=== PATIENT | female | born 1995 | race African-American/Black ===

== ENCOUNTER 2018-12-28 08:56 | Emergency (ER) | payer OTHER ==
[~2018-12-28] VITALS: Ht 162.6 cm; Wt 59.6 kg
[2018-12-28] MEDS ORDERED: ACETAMINOPHEN 500 MG TABLET PO ONE (10:00)
[2018-12-28 10:30] LABS: BILIRUBIN,URINE NEGATIVE (NEG); CLARITY,URINE CLEAR; COLOR,URINE YELLOW; NITRITE,URINE NEGATIVE (NEG); PROTEIN,URINE NEGATIVE (NEG-TRACE); UROBILINOGEN,URINE 0.2 mg/dL (0.2 mg/dL)
[2018-12-28 10:38] LABS: BACTERIA,URINE 0 /HPF (0-FEW); RBC,URINE 0 /HPF (0-2); SQUAMOUS EPITHELIAL CELL,UR FEW /LPF; WBC,URINE 0 /HPF (0-4)
[2018-12-28 11:21] LABS: BASO % 1 % (0-3); EOS # 0.1 x10^3/uL (0.0-0.7); EOS % 2 % (0-3); HEMATOCRIT 44.2 % (36.0-47.0); HEMOGLOBIN 14.5 g/dL (12.0-15.5); LYMPH # 1.7 x10^3/uL (1.0-4.8); LYMPH % 41 % (24-48); MEAN CORPUSCULAR HEMOGLOBIN 29 pg (25-35); MEAN CORPUSCULAR HGB CONC 33 g/dL (31-37); MEAN CORPUSCULAR VOLUME 90 fL (79-100); MONO # 0.4 x10^3/uL (0.0-1.1); MONO % 9 % (0-9); NEUT # 1.9 x10^3uL (1.8-7.7); NEUT % 47 % (31-73); PLATELET COUNT 213 x10^3/uL (140-400); RED BLOOD COUNT 4.91 x10^6/uL (3.50-5.40); RED CELL DISTRIBUTION WIDTH 13.3 % (11.5-14.5); WHITE BLOOD COUNT 4.1 x10^3/uL (4.0-11.0)
[2018-12-28 11:32] LABS: CALCIUM 9.7 mg/dL (8.5-10.1); CREATININE 0.7 mg/dL (0.6-1.0); GFR 123.4; POTASSIUM 3.9 mmol/L (3.5-5.1)
[2018-12-28 11:42] LABS: ALBUMIN 4.3 g/dL (3.4-5.0); ALBUMIN/GLOBULIN RATIO 1.2 (1.0-1.7); TOTAL BILIRUBIN 0.7 mg/dL (0.2-1.0); TOTAL PROTEIN 7.9 g/dL (6.4-8.2)
--- NOTE | 2018-12-28 12:35 | RAD ---
EXAM: Obstetrics sonogram. HISTORY: Pelvic pain and positive test. TECHNIQUE: Sonographic imaging of the pelvis was performed. COMPARISON: None. FINDINGS: The uterus measures 9.8 x 5.0 x 6.0 cm. There is a fluid collection within the endometrial cavity with surrounding decidual reaction, likely due to an early gestational sac. There is a circular echogenic structure within this suspected gestational sac likely due to a yolk sac. The gestational sac is abnormal in configuration and the mean sac diameter is 1.22 cm, corresponding with a gestational age of 6 weeks and 0 days. No pole is seen. The ovaries are normal in size and demonstrate normal blood flow. There is a suspected 2.2 cm left corpus luteum cyst. There are bilateral pelvic varices. There is no pelvic free fluid. IMPRESSION: 1. Small fluid collection within the endometrial cavity, the appearance of which favors a gestational sac with yolk sac. The mean sac diameter corresponds with a gestational age of 6 weeks and 0 days. No pole seen at this early gestational age. The gestational sac is abnormal in configuration and there is a reported low beta-hCG level of 155. This may be due to a declining beta hCG in the setting of a missed miscarriage or impending miscarriage. The possibly of an intrauterine pseudosac in the setting of ectopic gestation is not favored given the presence of a yolk sac. Serial beta hCG levels and short-term sonographic follow-up is indicated. 2. Suspected 2.2 cm left corpus luteum cyst. 3. Bilateral pelvic varices. Electronically signed by: Marilee Portillo MD (12/28/2018 12:32 PM) [facility]
--- NOTE | 2018-12-28 13:39 | PHYS DOC ---
Past Medical History Past Medical History: Asthma, STD, Other Additional Past Medical Histor: miscarriage Past Surgical History: No Surgical History Additional Information: 4-5 cigarettes daily Alcohol Use: None Drug Use: None Adult General Chief Complaint Chief Complaint: ABDOMINAL PAIN IN [facility] HPI Patient is a 23 year old female that presents to the ER with abdominal pain x 3 weeks. She has associated symptoms of when she defecates she has pain and becomes light-headed. She states she went to her PCP 2 weeks ago and had a positive test. 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 Denies any vaginal bleeding and states that her last menstrual period was on 11/24-11/29 and had more blood clots than normal. She rates her pain level a severity of 10/10 and states it feels like she is being stabbed. Review of Systems Review of Systems Constitutional: Denies fever. Reports feeling hot/cold. Eyes: Denies change in visual acuity, redness, or eye pain [] HENT: Denies nasal congestion or sore throat [] Respiratory: Denies cough or shortness of breath [] Cardiovascular: No additional information not addressed in HPI [] GI: Reports abdominal pain in the lower pelvic area. Denies nausea, vomiting, bloody stools or diarrhea [] : Denies dysuria or hematuria but reports frequency Musculoskeletal: Denies back pain or joint pain [] Integument: Denies rash or skin lesions [] Neurologic: Denies headache, focal weakness or sensory changes [] Endocrine: Reports frequency or polydipsia [] Complete systems were reviewed and found to be within normal limits, except as documented in this note. Current Medications Current Medications Current Medications Medications (Trade) Dose Ordered Sig/[facility] Start Time Stop Time Status Last Admin Dose Admin Acetaminophen (Tylenol) 500 mg 1X ONCE 12/28/18 10:00 12/28/18 10:10 DC 12/28/18 11:07 500 MG Allergies Allergies Allergies Coded Allergies Type Severity Reaction Last Updated Verified No Known Drug Allergies 12/28/18 No Physical Exam Physical Exam Constitutional: No acute distress, non-toxic appearance. [] HENT: Normocephalic, atraumatic, oropharynx moist, no oral exudates, nose normal. [] Eyes: PERRLA, EOMI, conjunctiva normal, no discharge. [] Neck: Normal range of motion, no tenderness, supple, no stridor. [] Cardiovascular:Heart rate regular rhythm, no murmur [] Lungs & Thorax: Bilateral breath sounds clear to auscultation [] Abdomen: Bowel sounds normal, soft, tenderness to lower pelvic area bilaterally, no masses, no pulsatile masses. [] Skin: Warm, dry, no erythema, no rash. [] Back: No tenderness, no CVA tenderness. [] Extremities: No tenderness, no cyanosis, no clubbing, ROM intact, no edema. [] Neurologic: Alert and oriented X 3, normal motor function, normal sensory function, no focal deficits noted. [] Psychologic: Affect normal, judgement normal, mood normal. [] Current Patient Data Vital Signs Vital Signs Date Time Temp Pulse Resp B/P (MAP) Pulse Ox O2 Delivery O2 Flow Rate FiO2 12/28/18 14:00 79 19 119/82 (94) 100 Room Air 12/28/18 09:10 99.2 99.2 Lab Values Laboratory Tests Test 12/28/18 09:11 12/28/18 09:14 12/28/18 10:50 12/28/18 12:16 Urine Collection Type Unknown Urine Color Yellow Urine Clarity Clear Urine pH 7.0 Urine Specific [place] 1.020 Urine Protein Negative mg/dL (NEG-TRACE) Urine Glucose (UA) Negative mg/dL (NEG) Urine Ketones (Stick) Negative mg/dL (NEG) Urine Blood Negative (NEG) Urine Nitrite Negative (NEG) Urine Bilirubin Negative (NEG) Urine Urobilinogen Dipstick 0.2 mg/dL (0.2 mg/dL) Urine Leukocyte Esterase Negative (NEG) Urine RBC 0 /HPF (0-2) Urine WBC 0 /HPF (0-4) Urine Squamous Epithelial Cells Few /LPF Urine Bacteria 0 /HPF (0-FEW) POC Urine HCG, Qualitative Hcg positive (Negative) White Blood Count 4.1 x10^3/uL (4.0-11.0) Red Blood Count 4.91 x10^6/uL (3.50-5.40) Hemoglobin 14.5 g/dL (12.0-15.5) Hematocrit 44.2 % (36.0-47.0) Mean Corpuscular Volume 90 fL (79-100) Mean Corpuscular Hemoglobin 29 pg (25-35) Mean Corpuscular Hemoglobin Concent 33 g/dL (31-37) Red Cell Distribution Width 13.3 % (11.5-14.5) Platelet Count 213 x10^3/uL (140-400) Neutrophils (%) (Auto) 47 % (31-73) Lymphocytes (%) (Auto) 41 % (24-48) Monocytes (%) (Auto) 9 % (0-9) Eosinophils (%) (Auto) 2 % (0-3) Basophils (%) (Auto) 1 % (0-3) Neutrophils # (Auto) 1.9 x10^3uL (1.8-7.7) Lymphocytes # (Auto) 1.7 x10^3/uL (1.0-4.8) Monocytes # (Auto) 0.4 x10^3/uL (0.0-1.1) Eosinophils # (Auto) 0.1 x10^3/uL (0.0-0.7) Basophils # (Auto) 0.0 x10^3/uL (0.0-0.2) Maternal Serum HCG Beta Subunit 155 mIU/mL (0-5) H Sodium Level 139 mmol/L (136-145) Potassium Level 3.9 mmol/L (3.5-5.1) Chloride Level 103 mmol/L (98-107) Carbon Dioxide Level 26 mmol/L (21-32) Anion Gap 10 (6-14) Blood Urea Nitrogen 8 mg/dL (7-20) Creatinine 0.7 mg/dL (0.6-1.0) Estimated GFR (Cockcroft-Gault) 123.4 BUN/Creatinine Ratio 11 (6-20) Glucose Level 88 mg/dL (70-99) Calcium Level 9.7 mg/dL (8.5-10.1) Total Bilirubin 0.7 mg/dL (0.2-1.0) Aspartate Amino Transferase (AST) 16 U/L (15-37) Alanine Aminotransferase (ALT) 19 U/L (14-59) Alkaline Phosphatase 43 U/L (46-116) L Total Protein 7.9 g/dL (6.4-8.2) Albumin 4.3 g/dL (3.4-5.0) Albumin/Globulin Ratio 1.2 (1.0-1.7) Chlamydia DNA Probe Negative (Negative) Neisseria gonorrhoeae DNA Probe Negative (Negative) Laboratory Tests 12/28/18 10:50 Laboratory Tests 12/28/18 10:50 EKG EKG [] Radiology/Procedures Radiology/Procedures Pelvic Exam: External exam is normal and without rash, No CMT, OS is closed, No discharge, uterus NTTP, No adnexal masses or tenderness noted[ PATIENT: JYOTI NUR ACCOUNT: [id number] : 1995 LOCATION: ER AGE: 23 SEX: F EXAM STATUS: REG ER ORD. PHYSICIAN: ADALBERTO SWAN APRN REASON: PELVIC PAIN r/o ectopic /waiting on hcg from lab PROCEDURE: OB <14 WKS W/TV EXAM: Obstetrics sonogram. HISTORY: Pelvic pain and positive test. TECHNIQUE: Sonographic imaging of the pelvis was performed. COMPARISON: None. FINDINGS: The uterus measures 9.8 x 5.0 x 6.0 cm. There is a fluid collection within the endometrial cavity with surrounding decidual reaction, likely due to an early gestational sac. There is a circular echogenic structure within this suspected gestational sac likely due to a yolk sac. The gestational sac is abnormal in configuration and the mean sac diameter is 1.22 cm, corresponding with a gestational age of 6 weeks and 0 days. No pole is seen. The ovaries are normal in size and demonstrate normal blood flow. There is a suspected 2.2 cm left corpus luteum cyst. There are bilateral pelvic varices. There is no pelvic free fluid. IMPRESSION: 1. Small fluid collection within the endometrial cavity, the appearance of which favors a gestational sac with yolk sac. The mean sac diameter corresponds with a gestational age of 6 weeks and 0 days. No pole seen at this early gestational age. The gestational sac is abnormal in configuration and there is a reported low beta-hCG level of 155. This may be due to a declining beta hCG in the setting of a missed miscarriage or impending miscarriage. The possibly of an intrauterine pseudosac in the setting of ectopic gestation is not favored given the presence of a yolk sac. Serial beta hCG levels and short-term sonographic follow-up is indicated. 2. Suspected 2.2 cm left corpus luteum cyst. 3. Bilateral pelvic varices. Electronically signed by: Marilee Portillo MD (12/28/2018 12:32 PM) [facility] & Med Decision Making Course & Med Decision Making Pertinent Labs and Imaging studies reviewed. (See chart for details) Talked to patient about her symptoms. Informed her that I will perform a pelvic, test for STD's, urinalysis, hcg quant, blood type, and r/o ectopic with ultrasound. Patient is agreeable to plan of care. Discussed with patient her results. Discussed how her HCG does not correspond to the ultrasound. Has 2.[address] Abel (OB) and discussed case and she will see patient in her clinic for follow up testing. Patient is agreeable to plan. Will also give Rhogam as she is O-. Dragon Disclaimer Dragon Disclaimer This electronic medical record was generated, in whole or in part, using a voice recognition dictation system. Departure Departure Impression: Primary Impression: Threatened miscarriage in early Disposition: 01 HOME, SELF-CARE Condition: STABLE Referrals: FLOR MATA MD (PCP) KORIN CAMARA MD Patient Instructions: Threatened Miscarriage, [id number] Additional Instructions: Please follow up with OB for additional testing in 1 week. If symptoms worsen come back to ER. Scripts No Active Prescriptions or Reported Meds ADALBERTO SWAN APRN December 28, 2018 13:39
[2018-12-28 14:00] VITALS: BP 119/82
[2018-12-29 13:15] LABS: GC PROBE Negative (Negative)
== END 2018-12-28 14:25 | disposition home or self-care (01) ==
LOC: ER 08:56
DX: O20.0 Threatened abortion (principal); R42 Dizziness and giddiness; O34.81 Maternal care for other abnormalities of pelvic organs, first trimester; N83.12 Corpus luteum cyst of left ovary; O99.331 Smoking (tobacco) complicating pregnancy, first trimester; F17.210 Nicotine dependence, cigarettes, uncomplicated; O99.511 Diseases of the respiratory system complicating pregnancy, first trimester; J45.909 Unspecified asthma, uncomplicated; Z3A.01 Less than 8 weeks gestation of pregnancy
CPT/HCPCS: 36415; 76801; 76817; 80053; 81001; 81025; 84702; 85025; 86850; 86900; 86901; 87491; 87591; 99285; J2791

== ENCOUNTER 2019-01-03 09:07 | Emergency (ER) | payer OTHER ==
[~2019-01-03] VITALS: Ht 162.6 cm; Wt 58.5 kg
--- NOTE | 2019-01-03 09:38 | PHYS DOC ---
Past Medical History Past Medical History: Asthma, STD, Other Additional Past Medical Histor: miscarriage Past Surgical History: No Surgical History Alcohol Use: None Drug Use: None Adult General Chief Complaint Chief Complaint: VAGINAL BLEEDING HPI HPI 23-year-old female returns to the ER as she was seen on 12/28/18 for abdominal pain with . Patient reports 5 AM this morning she started having vaginal bleeding and passed tissue. Patient states she has continued to have abdominal pain denies increasing cramping. Patient states she has used one pad since onset of bleeding this morning. Patient denies dizziness, vomiting, urinary sxs, or fever. LMP 11/24-11/29 [id number]. Received Rhogham on 12/28/18 while in the ER. Review of Systems Review of Systems Constitutional: Denies fever or fatigue Respiratory: Denies cough or shortness of breath [] Cardiovascular: No additional information not addressed in HPI [] GI: Denies vomiting, bloody stools or diarrhea. Reports mid abd pain with intermittent nausea during - similar to current pain : Denies dysuria or hematuria [] Musculoskeletal: Denies back pain or joint pain [] Integument: Denies rash or skin lesions [] Neurologic: Denies headache, focal weakness or sensory changes. Denies dizziness All other systems were reviewed and found to be within normal limits, except as documented in this note. Allergies Allergies Allergies Coded Allergies Type Severity Reaction Last Updated Verified No Known Drug Allergies 12/28/18 No Physical Exam Physical Exam Constitutional: Well developed, well nourished, no acute distress, non-toxic appearance. [] HENT: Normocephalic, atraumatic, oropharynx moist, nose normal. [] Eyes: Pupils equal, conjunctiva normal, no discharge. [] Neck: Normal range of motion, no tenderness, supple, no stridor. [] Cardiovascular: Heart rate regular rhythm, no murmur [] Lungs & Thorax: Bilateral breath sounds clear to auscultation- resp. equal/nonlabored Abdomen: Bowel sounds normal, soft-no distention or rigidity, no tenderness on palp. of abd, no masses, no pulsatile masses. [] Skin: Warm, dry, no erythema, no rash. [] Back: No tenderness, no CVA tenderness. [] Extremities: No tenderness, no cyanosis, no clubbing, ROM intact, no edema. [] Neurologic: Alert and oriented X 3, normal motor function, normal sensory function, no focal deficits noted. [] Psychologic: Affect normal, judgement normal, mood normal. [] Pelvic Exam: RN Mitch present 954 External Genitalia: Normal Skin- no rash/lesions/erythema Speculum: Normal vaginal mucosa, cervical os closed. Darker blood in vaginal vault- no clots/tissue Wet prep obtained as that had not been obtained on 12/28 ER visit Current Patient Data Vital Signs Vital Signs Date Time Temp Pulse Resp B/P (MAP) Pulse Ox O2 Delivery O2 Flow Rate FiO2 01/03/19 11:04 77 146/89 (108) 99 Room Air 01/03/19 09:23 98.6 18 98.6 Lab Values Laboratory Tests Test 01/03/19 09:15 01/03/19 09:40 Urine Color [place] Urine Clarity Clear Urine pH 5.5 Urine Specific [place] 1.025 Urine Protein Negative mg/dL (NEG-TRACE) Urine Glucose (UA) Negative mg/dL (NEG) Urine Ketones (Stick) Trace mg/dL (NEG) Urine Blood Large (NEG) Urine Nitrite Negative (NEG) Urine Bilirubin Negative (NEG) Urine Urobilinogen Dipstick 0.2 mg/dL (0.2 mg/dL) Urine Leukocyte Esterase Small (NEG) Urine RBC Tntc /HPF (0-2) Urine WBC 5-10 /HPF (0-4) Urine Bacteria Few /HPF (0-FEW) Urine Mucus Mod /LPF White Blood Count 4.8 x10^3/uL (4.0-11.0) Red Blood Count 4.61 x10^6/uL (3.50-5.40) Hemoglobin 13.6 g/dL (12.0-15.5) Hematocrit 41.3 % (36.0-47.0) Mean Corpuscular Volume 90 fL (79-100) Mean Corpuscular Hemoglobin 30 pg (25-35) Mean Corpuscular Hemoglobin Concent 33 g/dL (31-37) Red Cell Distribution Width 13.1 % (11.5-14.5) Platelet Count 220 x10^3/uL (140-400) Neutrophils (%) (Auto) 46 % (31-73) Lymphocytes (%) (Auto) 44 % (24-48) Monocytes (%) (Auto) 8 % (0-9) Eosinophils (%) (Auto) 2 % (0-3) Basophils (%) (Auto) 0 % (0-3) Neutrophils # (Auto) 2.2 x10^3uL (1.8-7.7) Lymphocytes # (Auto) 2.1 x10^3/uL (1.0-4.8) Monocytes # (Auto) 0.4 x10^3/uL (0.0-1.1) Eosinophils # (Auto) 0.1 x10^3/uL (0.0-0.7) Basophils # (Auto) 0.0 x10^3/uL (0.0-0.2) Maternal Serum HCG Beta Subunit 62 mIU/mL (0-5) H Sodium Level 137 mmol/L (136-145) Potassium Level 3.6 mmol/L (3.5-5.1) Chloride Level 103 mmol/L (98-107) Carbon Dioxide Level 22 mmol/L (21-32) Anion Gap 12 (6-14) Blood Urea Nitrogen 8 mg/dL (7-20) Creatinine 0.8 mg/dL (0.6-1.0) Estimated GFR (Cockcroft-Gault) 105.8 Glucose Level 104 mg/dL (70-99) H Calcium Level 8.9 mg/dL (8.5-10.1) Laboratory Tests 01/03/19 09:40 Laboratory Tests 01/03/19 09:40 Microbiology 01/03/19 Wet Prep - Final, Complete Laboratory Tests Test 01/03/19 09:15 01/03/19 09:40 Urine Color [place] Urine Clarity Clear Urine pH 5.5 Urine Specific [place] 1.025 Urine Protein Negative mg/dL (NEG-TRACE) Urine Glucose (UA) Negative mg/dL (NEG) Urine Ketones (Stick) Trace mg/dL (NEG) Urine Blood Large (NEG) Urine Nitrite Negative (NEG) Urine Bilirubin Negative (NEG) Urine Urobilinogen Dipstick 0.2 mg/dL (0.2 mg/dL) Urine Leukocyte Esterase Small (NEG) Urine RBC Tntc /HPF (0-2) Urine WBC 5-10 /HPF (0-4) Urine Bacteria Few /HPF (0-FEW) Urine Mucus Mod /LPF White Blood Count 4.8 x10^3/uL (4.0-11.0) Red Blood Count 4.61 x10^6/uL (3.50-5.40) Hemoglobin 13.6 g/dL (12.0-15.5) Hematocrit 41.3 % (36.0-47.0) Mean Corpuscular Volume 90 fL (79-100) Mean Corpuscular Hemoglobin 30 pg (25-35) Mean Corpuscular Hemoglobin Concent 33 g/dL (31-37) Red Cell Distribution Width 13.1 % (11.5-14.5) Platelet Count 220 x10^3/uL (140-400) Neutrophils (%) (Auto) 46 % (31-73) Lymphocytes (%) (Auto) 44 % (24-48) Monocytes (%) (Auto) 8 % (0-9) Eosinophils (%) (Auto) 2 % (0-3) Basophils (%) (Auto) 0 % (0-3) Neutrophils # (Auto) 2.2 x10^3uL (1.8-7.7) Lymphocytes # (Auto) 2.1 x10^3/uL (1.0-4.8) Monocytes # (Auto) 0.4 x10^3/uL (0.0-1.1) Eosinophils # (Auto) 0.1 x10^3/uL (0.0-0.7) Basophils # (Auto) 0.0 x10^3/uL (0.0-0.2) Maternal Serum HCG Beta Subunit 62 mIU/mL (0-5) H Sodium Level 137 mmol/L (136-145) Potassium Level 3.6 mmol/L (3.5-5.1) Chloride Level 103 mmol/L (98-107) Carbon Dioxide Level 22 mmol/L (21-32) Anion Gap 12 (6-14) Blood Urea Nitrogen 8 mg/dL (7-20) Creatinine 0.8 mg/dL (0.6-1.0) Estimated GFR (Cockcroft-Gault) 105.8 Glucose Level 104 mg/dL (70-99) H Calcium Level 8.9 mg/dL (8.5-10.1) Laboratory Tests 01/03/19 09:40 Laboratory Tests 01/03/19 09:40 Microbiology 01/03/19 Wet Prep - Final, Complete EKG EKG [] Radiology/Procedures Radiology/Procedures [] Course & Med Decision Making Course & Med Decision Making Pertinent Labs reviewed. (See chart for details) 1040: Pt was evaluated in the ER for complaints of onset of vaginal bleeding this morning at 5 AM. Patient was seen in the ER on 12/28/18 and had a hCG quantitative of 155. Pt's HCQ quant today is 62- pt reports she passed tissue like vaginal discharge at home had concerns that she had miscarried. Patient's H&H was stable at 13.6/41.3. Pelvic exam was done and cervical os was closed. No tissue or clots in vaginal vault. Wet mount was obtained which was negative for trichomonas or yeast. Patient was scheduled to see Dr. Abel this morning julieth le with onset of bleeding she came to the ER. During exam pt denied any abd tenderness on palp. With stable labs, stable VS, and no active bright red bleeding/clots visible on pelvic discussed plans for home d/c. Advised patient she would need follow-up in 48 hours for repeat hCG quantitative as well as reevaluation and further care by STAFFING SPECIALIST. With levels dropping on her hCG quantitative discussed probable miscarriage. Patient had received Rhogham on 12/28/18. Patient's UA today with large blood small leuks and 5-10 WBCs on micro- so will provide prescription for Keflex. Education provided on signs and symptoms to return to ER for. Patient remains nontoxic in appearance and in no visible distress during discharge discussion. Discharge instructions were discussed. Dragon Disclaimer Dragon Disclaimer This electronic medical record was generated, in whole or in part, using a voice recognition dictation system. Departure Departure Impression: Primary Impression: Threatened miscarriage in early Additional Impression: Urinary tract infection Disposition: 01 HOME, SELF-CARE Condition: STABLE Referrals: FLOR MATA MD (PCP) Patient Instructions: Threatened Miscarriage, Urinary Tract Infection, Vaginal Bleeding During , First Trimester Additional Instructions: Drink plenty of fluids. Vaginal rest until follow-up with your STAFFING SPECIALIST- no sexual intercourse or insertion of anything into the vagina. Tylenol as needed for pain as directed on container. Follow-up with your STAFFING SPECIALIST for recheck of your level- today's lab result was 62 which is down from 155 on 12/28/18. Scripts Cephalexin (KEFLEX) 500 Mg Capsule 1 CAP PO BID, #14 CAP 0 Refills Prov: CHRISSY SALAZAR APRN 01/03/19 Problem Qualifiers CHRISSY SALAZAR APRN January 03, 2019 09:38
[2019-01-03 09:55] LABS: BASO % 0 % (0-3); EOS # 0.1 x10^3/uL (0.0-0.7); EOS % 2 % (0-3); HEMATOCRIT 41.3 % (36.0-47.0); HEMOGLOBIN 13.6 g/dL (12.0-15.5); LYMPH # 2.1 x10^3/uL (1.0-4.8); LYMPH % 44 % (24-48); MEAN CORPUSCULAR HEMOGLOBIN 30 pg (25-35); MEAN CORPUSCULAR HGB CONC 33 g/dL (31-37); MEAN CORPUSCULAR VOLUME 90 fL (79-100); MONO # 0.4 x10^3/uL (0.0-1.1); MONO % 8 % (0-9); NEUT # 2.2 x10^3uL (1.8-7.7); NEUT % 46 % (31-73); PLATELET COUNT 220 x10^3/uL (140-400); RED BLOOD COUNT 4.61 x10^6/uL (3.50-5.40); RED CELL DISTRIBUTION WIDTH 13.1 % (11.5-14.5); WHITE BLOOD COUNT 4.8 x10^3/uL (4.0-11.0)
[2019-01-03 09:57] LABS: BILIRUBIN,URINE NEGATIVE (NEG); CLARITY,URINE CLEAR; COLOR,URINE AMBER; NITRITE,URINE NEGATIVE (NEG); PH,URINE 5.5; PROTEIN,URINE NEGATIVE (NEG-TRACE); UROBILINOGEN,URINE 0.2 mg/dL (0.2 mg/dL)
[2019-01-03 10:07] LABS: CALCIUM 8.9 mg/dL (8.5-10.1); CREATININE 0.8 mg/dL (0.6-1.0); GFR 105.8; POTASSIUM 3.6 mmol/L (3.5-5.1)
[2019-01-03 10:09] LABS: BACTERIA,URINE FEW /HPF (0-FEW); RBC,URINE TNTC /HPF (0-2)
[2019-01-03] MEDS ORDERED: CEPH-264 PO (11:01)
[2019-01-03 11:04] VITALS: BP 146/89
== END 2019-01-03 11:05 | disposition home or self-care (01) ==
LOC: ER 09:07
DX: O20.0 Threatened abortion (principal); O23.41 Unspecified infection of urinary tract in pregnancy, first trimester; O99.511 Diseases of the respiratory system complicating pregnancy, first trimester; J45.909 Unspecified asthma, uncomplicated; Z3A.00 Weeks of gestation of pregnancy not specified
CPT/HCPCS: 36415; 80048; 81001; 84702; 85025; 87086; 99284; Q0111

== ENCOUNTER 2019-04-08 10:44 | Emergency (ER) | payer MEDICAID, OTHER ==
[~2019-04-08] VITALS: Ht 162.6 cm; Wt 58.5 kg
[~2019-04-08 10:44] MED LIST: CEPH-264 PO
[2019-04-08 10:50] VITALS: BP 158/78
[2019-04-08] MEDS ORDERED: predniSONE 10 MG TABLET PO ONE (11:15)
[2019-04-08] MEDS ORDERED: IPRATRPIUM/ALBUTEROL 0.5/2.5MG 3 ML NEBU. NEB ONE (11:15)
[2019-04-08] MEDS ORDERED: BENZ100C PO (11:33)
[2019-04-08] MEDS ORDERED: AZIT250T PO (11:33)
[2019-04-08] MEDS ORDERED: METH4TAB2 PO (11:33)
--- NOTE | 2019-04-08 11:34 | PHYS DOC ---
Past Medical History Past Medical History: Asthma, STD, Other Additional Past Medical Histor: miscarriage Past Surgical History: No Surgical History Smoking: Less than 1pk/day Alcohol Use: None Drug Use: None Adult General Chief Complaint Chief Complaint: ASTHMA HPI HPI Patient is a 23 year old female with history of asthma who presents with complaining of shortness of breath and cough. Patient complaining of cough with tick white sputum and episodes of shortness of breath for one week associated with nasal congestion and headache that did not get better with home inhalers. Patient denies fever and chills, urinary symptom, , sick contact. Patient complaining of chest tightness during episodes of cough and shortness of breath. Patient states she had diarrhea for couple days that resolved spontaneously. Review of Systems Review of Systems Constitutional: Denies fever or chills [] Eyes: Denies change in visual acuity, redness, or eye pain [] HENT: Reports nasal congestion, denies earache and sore throat [] Respiratory: Reports shortness of breath and cough Cardiovascular: No additional information not addressed in HPI [] GI: Denies abdominal pain, nausea, vomiting, bloody stools or diarrhea [] : Denies dysuria or hematuria [] Musculoskeletal: Denies back pain or joint pain [] Integument: Denies rash or skin lesions [] Neurologic: Denies headache, focal weakness or sensory changes [] Endocrine: Denies polyuria or polydipsia [] All other systems were reviewed and found to be within normal limits, except as documented in this note. Current Medications Current Medications Current Medications Medications (Trade) Dose Ordered Sig/Jimbo Start Time Stop Time Status Last Admin Dose Admin Albuterol/ Ipratropium (Duoneb) 3 ml 1X ONCE 04/08/19 11:15 04/08/19 11:19 DC 04/08/19 11:31 3 ML Prednisone (Prednisone) 50 mg 1X ONCE 04/08/19 11:15 04/08/19 11:20 DC 04/08/19 11:24 50 MG Allergies Allergies Allergies Coded Allergies Type Severity Reaction Last Updated Verified No Known Drug Allergies 12/28/18 No Physical Exam Physical Exam Constitutional: Well developed, well nourished,mild distress, non-toxic appearance. [] HENT: Normocephalic, atraumatic, bilateral external ears normal, oropharynx moist, no oral exudates, nose normal. [] Eyes: PERRLA, EOMI, conjunctiva normal, no discharge. [] Neck: Normal range of motion, no tenderness, supple, no stridor. [] Cardiovascular:Heart rate regular rhythm, no murmur [] Lungs & Thorax: No respiratory distress, mild wheezing. Abdomen: Bowel sounds normal, soft, no tenderness, no masses, no pulsatile masses. [] Skin: Warm, dry, no erythema, no rash. [] Back: No tenderness, no CVA tenderness. [] Extremities: No tenderness, no cyanosis, no clubbing, ROM intact, no edema. [] Neurologic: Alert and oriented X 3, normal motor function, normal sensory function, no focal deficits noted. [] Psychologic: Affect normal, judgement normal, mood normal. [] Current Patient Data Vital Signs Vital Signs Date Time Temp Pulse Resp B/P (MAP) Pulse Ox O2 Delivery O2 Flow Rate FiO2 04/08/19 11:34 99 Room Air 04/08/19 10:50 98.9 85 15 158/78 (104) 98.9 EKG EKG [] Radiology/Procedures Radiology/Procedures [] Course & Med Decision Making Course & Med Decision Making Evaluation of patient in ER showed 23-year-old female patient with history of asthma who presented to ER with complaining of shortness of breath and asthma for 1 week that did not get better with Proair. Patient had mild wheezing without fever or hypoxia. Patient was advised to quit smoking and continue her home inhaler. I've spoken with the patient and/or caregivers. I've explained the patient's condition, diagnosis and treatment plan based on information available to me at this time. I've answered the patient's and/or caregivers questions and addressed any concerns. The patient and/or caregivers have a good understanding the patient's diagnosis, condition and treatment plan as can be expected at this point. Vital signs have been stabilized. The patient's condition is stable for discharge from the emergency department. The patient will pursue further outpatient evaluation with her primary care provider or other designated consulting physician as outlined in the discharge instructions. Patient and/or caregivers are agreeable to this plan of care and follow-up instructions have been explained in detail. The patient and/or caregivers have received these instructions in written format and expressed understanding of these discharge instructions. The patient and her caregivers are aware that if any significant change in condition or worsening of symptoms should prompt him to immediately return to this of the closest emergency department. If an emergent department is not readily available I would encourage him to call 911. Yecenia Disclaimer Yecenia Disclaimer This electronic medical record was generated, in whole or in part, using a voice recognition dictation system. Departure Departure Impression: Primary Impression: Asthmatic bronchitis with acute exacerbation Additional Impression: Tobacco abuse counseling Disposition: HOME, SELF-CARE (at 11:30) Condition: STABLE Referrals: UNKNOWN PCP NAME (PCP) Patient Instructions: Asthma Attacks, Prevention, Asthma, Acute Bronchospasm, Smoking Cessation, Tips For Success Additional Instructions: Drink plenty of liquids Follow-up with your primary care physician in 3-5 days Return to ER if not getting better Scripts Azithromycin (ZITHROMAX) 250 Mg Tablet 1 PKG PO UD for infection, #1 PKG Prov: ADARSH MALCOLM MD 04/08/19 Benzonatate (TESSALON PERLE) 100 Mg Capsule 1 CAP PO TID for cough, #21 CAP Prov: ADARSH MALCOLM MD 04/08/19 Methylprednisolone (MEDROL) 4 Mg Tab.ds.pk 1 PKG PO UD for inflammation, #1 PKG Prov: ADARSH MALCOLM MD 04/08/19 Problem Qualifiers Primary Impression: Asthmatic bronchitis with acute exacerbation Asthma severity: mild Asthma persistence: intermittent Qualified Codes: J45.21 - Mild intermittent asthma with (acute) exacerbation ADARSH MALCOLM MD Apr 08, 2019 11:34
== END 2019-04-08 11:38 | disposition home or self-care (01) ==
LOC: ER 10:44
DX: J45.21 Mild intermittent asthma with (acute) exacerbation (principal); Z71.6 Tobacco abuse counseling
CPT/HCPCS: 94640; 99283; J7512; J7620

== ENCOUNTER 2019-09-04 14:02 | Emergency (ER) | payer MEDICAID ==
[~2019-09-04] VITALS: Ht 162.6 cm; Wt 59.9 kg
[~2019-09-04 14:02] MED LIST changes: +AZIT250T PO; +BENZ100C PO; +METH4TAB2 PO
--- NOTE | 2019-09-04 16:16 | PHYS DOC ---
Past Medical History Past Medical History: Asthma, STD, Other Additional Past Medical Histor: miscarriage Past Surgical History: No Surgical History Alcohol Use: None Drug Use: None Adult General Chief Complaint Chief Complaint: ABDOMINAL PAIN IN HPI HPI Patient is a 24 year old female who presents the ED today complaining of pelvic pain rated as mild to moderate intermittently for one week. Patient describes the pain as labor pains. Denies any vaginal discharge, bleeding, or concerns for STDs. Denies any chance she is . Review of Systems Review of Systems Constitutional: Denies fever or chills [] Eyes: Denies change in visual acuity, redness, or eye pain [] HENT: Denies nasal congestion or sore throat [] Respiratory: Denies cough or shortness of breath [] Cardiovascular: No additional information not addressed in HPI [] GI: Reports pelvic pain, nausea, vomiting, bloody stools or diarrhea [] : Denies dysuria or hematuria [] Musculoskeletal: Denies back pain or joint pain [] Integument: Denies rash or skin lesions [] Neurologic: Denies headache, focal weakness or sensory changes [] All other systems were reviewed and found to be within normal limits, except as documented in this note. Allergies Allergies Allergies Coded Allergies Type Severity Reaction Last Updated Verified No Known Drug Allergies 12/28/18 No Physical Exam Physical Exam Constitutional: Well developed, well nourished, no acute distress, non-toxic appearance. [] HENT: Normocephalic, atraumatic, bilateral external ears normal, oropharynx moist, no oral exudates, nose normal. [] Eyes: PERRLA, EOMI, conjunctiva normal, no discharge. [] Neck: Normal range of motion, no tenderness, supple, no stridor. [] Cardiovascular:Heart rate regular rhythm, no murmur [] Lungs & Thorax: Bilateral breath sounds clear to auscultation [] Abdomen: Bowel sounds normal, soft, no tenderness, no masses, no pulsatile masses. [] Pelvic exam External pelvic appears normal, cervix is visualized, closed, no CMT, no adnexal tenderness, trace amount of white discharge in the vaginal vault Skin: Warm, dry, no erythema, no rash. [] Back: No tenderness, no CVA tenderness. [] Extremities: No tenderness, no cyanosis, no clubbing, ROM intact, no edema. [] Neurologic: Alert and oriented X 3, normal motor function, normal sensory function, no focal deficits noted. [] Psychologic: Affect normal, judgement normal, mood normal. [] Current Patient Data Vital Signs Vital Signs Date Time Temp Pulse Resp B/P (MAP) Pulse Ox O2 Delivery O2 Flow Rate FiO2 09/04/19 15:44 98.6 72 16 140/66 (90) 100 Room Air 98.6 Lab Values Laboratory Tests Test 09/04/19 15:54 09/04/19 15:55 09/04/19 16:25 POC Urine HCG, Qualitative Hcg positive (Negative) Urine Collection Type Unknown Urine Color Yellow Urine Clarity Turbid Urine pH 6.0 Urine Specific [place] 1.025 Urine Protein Negative mg/dL (NEG-TRACE) Urine Glucose (UA) Negative mg/dL (NEG) Urine Ketones (Stick) Negative mg/dL (NEG) Urine Blood Negative (NEG) Urine Nitrite Negative (NEG) Urine Bilirubin Negative (NEG) Urine Urobilinogen Dipstick 1.0 mg/dL (0.2 mg/dL) Urine Leukocyte Esterase Negative (NEG) Urine RBC 1-2 /HPF (0-2) Urine WBC 1-4 /HPF (0-4) Urine Squamous Epithelial Cells Mod /LPF Urine Bacteria Mod /HPF (0-FEW) Urine Mucus Marked /LPF White Blood Count 6.3 x10^3/uL (4.0-11.0) Red Blood Count 4.55 x10^6/uL (3.50-5.40) Hemoglobin 13.7 g/dL (12.0-15.5) Hematocrit 41.2 % (36.0-47.0) Mean Corpuscular Volume 91 fL (79-100) Mean Corpuscular Hemoglobin 30 pg (25-35) Mean Corpuscular Hemoglobin Concent 33 g/dL (31-37) Red Cell Distribution Width 13.4 % (11.5-14.5) Platelet Count 248 x10^3/uL (140-400) Neutrophils (%) (Auto) 47 % (31-73) Lymphocytes (%) (Auto) 42 % (24-48) Monocytes (%) (Auto) 7 % (0-9) Eosinophils (%) (Auto) 3 % (0-3) Basophils (%) (Auto) 2 % (0-3) Neutrophils # (Auto) 3.0 x10^3/uL (1.8-7.7) Lymphocytes # (Auto) 2.6 x10^3/uL (1.0-4.8) Monocytes # (Auto) 0.4 x10^3/uL (0.0-1.1) Eosinophils # (Auto) 0.2 x10^3/uL (0.0-0.7) Basophils # (Auto) 0.1 x10^3/uL (0.0-0.2) Maternal Serum HCG Beta Subunit 2653 mIU/mL (0-5) H Sodium Level 138 mmol/L (136-145) Potassium Level 4.0 mmol/L (3.5-5.1) Chloride Level 104 mmol/L (98-107) Carbon Dioxide Level 25 mmol/L (21-32) Anion Gap 9 (6-14) Blood Urea Nitrogen 10 mg/dL (7-20) Creatinine 0.7 mg/dL (0.6-1.0) Estimated GFR (Cockcroft-Gault) 122.4 BUN/Creatinine Ratio 14 (6-20) Glucose Level 92 mg/dL (70-99) Calcium Level 8.9 mg/dL (8.5-10.1) Total Bilirubin 0.5 mg/dL (0.2-1.0) Aspartate Amino Transferase (AST) 23 U/L (15-37) Alanine Aminotransferase (ALT) 43 U/L (14-59) Alkaline Phosphatase 44 U/L (46-116) L Total Protein 6.8 g/dL (6.4-8.2) Albumin 3.8 g/dL (3.4-5.0) Albumin/Globulin Ratio 1.3 (1.0-1.7) Laboratory Tests 09/04/19 16:25 Laboratory Tests 09/04/19 16:25 Microbiology 09/04/19 Wet Prep - Final, Complete EKG EKG [] Radiology/Procedures Radiology/Procedures []PROCEDURE: OB <14 WKS W/TV EXAM: Obstetrics sonogram. HISTORY: Pain. TECHNIQUE: Sonographic imaging of a gravid uterus was performed. COMPARISON: None. FINDINGS: The uterus measures 8.9 x 5.4 x 6.3 cm. The endometrial stripe measures 1.4 cm in thickness. There is a small fluid collection within the endometrial cavity likely representing an early gestational sac with mean sac diameter of 3.3 mm, corresponding with a gestational age of 5 weeks and 0 days. No pole or yolk sac is seen. The ovaries are normal in size and demonstrate normal blood flow. There is no pelvic free fluid. IMPRESSION: 1. Suspected early gestational sac within the endometrial cavity with a mean sac diameter corresponding with a gestational age of 5 weeks and 0 days. No pole is seen at this early gestation. Short-term sonographic follow-up and correlation with serial beta-hCG levels is recommended to assess viability and exclude a pseudosac. 2. Otherwise, unremarkable pelvic sonogram. Electronically signed by: Marilee Portillo MD (09/04/2019 4:46 PM) [place] [id number] DICTATED and SIGNED BY: MARILEE PORTILLO MD DATE: 09/04/19 [id number] Course & Med Decision Making Course & Med Decision Making Pertinent Labs and Imaging studies reviewed. (See chart for details) This is a 24-year-old female patient presenting to the ED today with complaints of pelvic pain for one week. Positive urine hCG. UA negative. Wet prep + for BV D/C with flagyl Beta hcg 2653 CBC, CMP, no acute findings OB ultrasound noted for suspected early gestational sac within the endometrial cavity with a mean sac diameter corresponding with a gestational age of 5 weeks and 0 days. No pole is seen at this early gestation. Short-term sono graphic follow-up and correlation with serial beta-hCG levels is recommended to assess viability and exclude a pseudosac. Patient was provided FRESH WORK INSPECTOR for follow-up. Provided return precautions and discharged in stable condition Dragon Disclaimer Dragon Disclaimer This electronic medical record was generated, in whole or in part, using a voice recognition dictation system. Departure Departure Impression: Primary Impression: Abdominal pain in Additional Impressions: Bacterial vaginosis state, incidental Disposition: 01 HOME, SELF-CARE Condition: STABLE Referrals: NO PCP (PCP) JACKIE FRIAS Jr, MD follow up in 2 days Patient Instructions: ABCs of , Abdominal Pain During , Bacterial Vaginosis, [id number] Additional Instructions: You were evaluated in the emergency room for abdominal pain in . Your ultrasound shows you're roughly 5 weeks . Your beta hCG is 2653. Please contact the FRESH WORK INSPECTOR provided or your own FRESH WORK INSPECTOR and follow up in 2 days. You also have bacterial vaginosis, we put you on antibiotics for this ensure you complete them. Do not drink alcohol with this medication. Come back to the ED at any point symptoms worsen. Scripts Metronidazole (FLAGYL) 500 Mg Tablet 1 TAB PO BID, #14 TAB Prov: RISHI HARRINGTON APRN 09/04/19 Problem Qualifiers Primary Impression: Abdominal pain in Trimester: first trimester Qualified Codes: O26.891 - Other specified related conditions, first trimester; R10.9 - Unspecified abdominal pain RISHI HARRINGTON MEDIA CONSULTANT [employer] Sep 04, 2019 16:16
[2019-09-04 16:22] LABS: BILIRUBIN,URINE NEGATIVE (NEG); CLARITY,URINE TURBID; COLOR,URINE YELLOW; NITRITE,URINE NEGATIVE (NEG); PROTEIN,URINE NEGATIVE (NEG-TRACE)
[2019-09-04 16:37] LABS: SQUAMOUS EPITHELIAL CELL,UR MOD /LPF
[2019-09-04 16:38] LABS: BACTERIA,URINE MOD /HPF (0-FEW)
--- NOTE | 2019-09-04 16:49 | RAD ---
EXAM: Obstetrics sonogram. HISTORY: Pain. TECHNIQUE: Sonographic imaging of a gravid uterus was performed. COMPARISON: None. FINDINGS: The uterus measures 8.9 x 5.4 x 6.3 cm. The endometrial stripe measures 1.4 cm in thickness. There is a small fluid collection within the endometrial cavity likely representing an early gestational sac with mean sac diameter of 3.3 mm, corresponding with a gestational age of 5 weeks and 0 days. No pole or yolk sac is seen. The ovaries are normal in size and demonstrate normal blood flow. There is no pelvic free fluid. IMPRESSION: 1. Suspected early gestational sac within the endometrial cavity with a mean sac diameter corresponding with a gestational age of 5 weeks and 0 days. No pole is seen at this early gestation. Short-term sonographic follow-up and correlation with serial beta-hCG levels is recommended to assess viability and exclude a pseudosac. 2. Otherwise, unremarkable pelvic sonogram. Electronically signed by: Marilee Portillo MD (09/04/2019 4:46 PM) [facility]
[2019-09-04 16:55] LABS: BASO # 0.1 x10^3/uL (0.0-0.2); BASO % 2 % (0-3); CALCIUM 8.9 mg/dL (8.5-10.1); CREATININE 0.7 mg/dL (0.6-1.0); EOS # 0.2 x10^3/uL (0.0-0.7); EOS % 3 % (0-3); GFR 122.4; HEMATOCRIT 41.2 % (36.0-47.0); HEMOGLOBIN 13.7 g/dL (12.0-15.5); LYMPH # 2.6 x10^3/uL (1.0-4.8); LYMPH % 42 % (24-48); MEAN CORPUSCULAR HEMOGLOBIN 30 pg (25-35); MEAN CORPUSCULAR HGB CONC 33 g/dL (31-37); MEAN CORPUSCULAR VOLUME 91 fL (79-100); MONO # 0.4 x10^3/uL (0.0-1.1); MONO % 7 % (0-9); NEUT % 47 % (31-73); PLATELET COUNT 248 x10^3/uL (140-400); RED BLOOD COUNT 4.55 x10^6/uL (3.50-5.40); RED CELL DISTRIBUTION WIDTH 13.4 % (11.5-14.5); WHITE BLOOD COUNT 6.3 x10^3/uL (4.0-11.0)
[2019-09-04 17:02] LABS: ALBUMIN 3.8 g/dL (3.4-5.0); ALBUMIN/GLOBULIN RATIO 1.3 (1.0-1.7); TOTAL BILIRUBIN 0.5 mg/dL (0.2-1.0); TOTAL PROTEIN 6.8 g/dL (6.4-8.2)
[2019-09-04] MEDS ORDERED: METR500T PO (17:30)
[2019-09-04 17:32] VITALS: BP 122/61
[2019-09-05 18:09] LABS: GC PROBE Negative (Negative)
== END 2019-09-04 17:38 | disposition home or self-care (01) ==
LOC: ER 14:02
DX: O23.591 Infection of other part of genital tract in pregnancy, first trimester (principal); B96.89 Other specified bacterial agents as the cause of diseases classified elsewhere; R10.9 Unspecified abdominal pain; O99.511 Diseases of the respiratory system complicating pregnancy, first trimester; J45.909 Unspecified asthma, uncomplicated; Z3A.01 Less than 8 weeks gestation of pregnancy
CPT/HCPCS: 36415; 76801; 76817; 80053; 81001; 81025; 84702; 85025; 87491; 87591; 99285; Q0111

== ENCOUNTER 2019-09-18 15:51 | Emergency (ER) | payer MEDICAID ==
[~2019-09-18] VITALS: Ht 165.1 cm; Wt 63.0 kg
[~2019-09-18 15:51] MED LIST changes: +METR500T PO
--- NOTE | 2019-09-18 16:20 | PHYS DOC ---
Past Medical History Past Medical History: Asthma, STD, Other Additional Past Medical Histor: miscarriage Past Surgical History: No Surgical History Alcohol Use: None Drug Use: None Adult General Chief Complaint Chief Complaint: VOMITING IN [facility] Patient is a 24 year old female who presents with vomiting during . The patient is a [id number], LMP 12/5. The patient was diagnosed when she was here on September 04 and had ultrasound at that time. She denies any abdominal pain, or vaginal bleeding this time. On her visit on September 04 there was a suspected gestational sac with an estimated age of 5 weeks. Has had issues with nausea during past pregnancies. Has an appointment with Dr. Rivers on Wednesday. Is not currently on or nausea medications. Complete ROS were reviewed and found to be within normal limits, except as documented in the [facility] Current Medications Current Medications Current Medications Medications (Trade) Dose Ordered Sig/Jimbo Start Time Stop Time Status Last Admin Dose Admin Ondansetron HCl (Zofran) 4 mg 1X STAT 09/18/19 16:14 09/18/19 16:15 DC 09/18/19 16:25 4 MG Sodium Chloride 1,000 ml @ 1,000 mls/hr 1X ONCE 09/18/19 16:00 09/18/19 16:59 DC 09/18/19 16:26 1,000 MLS/HR Allergies Allergies Allergies Coded Allergies Type Severity Reaction Last Updated Verified No Known Drug Allergies 12/28/18 No Physical Exam Physical Exam Constitutional: Well developed, well nourished, no acute distress, non-toxic appearance. [] HENT: Normocephalic, atraumatic, bilateral external ears normal, oropharynx moist, no oral exudates, nose normal. [] Eyes: PERRLA, EOMI, conjunctiva normal, no discharge. [] Neck: Normal range of motion, no tenderness, supple Cardiovascular:Heart rate regular rhythm, no murmur [] Lungs & Thorax: Bilateral breath sounds clear to auscultation [] Abdomen: Bowel sounds normal, soft, no tenderness, no masses, no pulsatile masses. [] Skin: Warm, dry, no erythema, no rash. [] Neurologic: Alert and oriented X 3, normal motor function, normal sensory function, no focal deficits noted. [] Psychologic: Affect normal, judgement normal, mood normal. [] Current Patient Data Lab Values Laboratory Tests Test 09/18/19 16:00 09/18/19 16:18 09/18/19 16:19 Urine Collection Type Unknown Urine Color Yellow Urine Clarity Turbid Urine pH 7.5 Urine Specific [place] 1.025 Urine Protein Negative mg/dL (NEG-TRACE) Urine Glucose (UA) Negative mg/dL (NEG) Urine Ketones (Stick) Negative mg/dL (NEG) Urine Blood Negative (NEG) Urine Nitrite Negative (NEG) Urine Bilirubin Negative (NEG) Urine Urobilinogen Dipstick 1.0 mg/dL (0.2 mg/dL) Urine Leukocyte Esterase Small (NEG) Urine RBC 0 /HPF (0-2) Urine WBC 1-4 /HPF (0-4) Urine Squamous Epithelial Cells Many /LPF Urine Amorphous Sediment Present /HPF Urine Bacteria 0 /HPF (0-FEW) Urine Mucus Marked /LPF White Blood Count 6.1 x10^3/uL (4.0-11.0) Red Blood Count 4.85 x10^6/uL (3.50-5.40) Hemoglobin 14.8 g/dL (12.0-15.5) Hematocrit 43.7 % (36.0-47.0) Mean Corpuscular Volume 90 fL (79-100) Mean Corpuscular Hemoglobin 31 pg (25-35) Mean Corpuscular Hemoglobin Concent 34 g/dL (31-37) Red Cell Distribution Width 13.2 % (11.5-14.5) Platelet Count 239 x10^3/uL (140-400) Neutrophils (%) (Auto) 56 % (31-73) Lymphocytes (%) (Auto) 34 % (24-48) Monocytes (%) (Auto) 8 % (0-9) Eosinophils (%) (Auto) 2 % (0-3) Basophils (%) (Auto) 0 % (0-3) Neutrophils # (Auto) 3.4 x10^3/uL (1.8-7.7) Lymphocytes # (Auto) 2.1 x10^3/uL (1.0-4.8) Monocytes # (Auto) 0.5 x10^3/uL (0.0-1.1) Eosinophils # (Auto) 0.1 x10^3/uL (0.0-0.7) Basophils # (Auto) 0.0 x10^3/uL (0.0-0.2) Maternal Serum HCG Beta Subunit 13004 mIU/mL (0-5) H Sodium Level 138 mmol/L (136-145) Potassium Level 3.6 mmol/L (3.5-5.1) Chloride Level 102 mmol/L (98-107) Carbon Dioxide Level 27 mmol/L (21-32) Anion Gap 9 (6-14) Blood Urea Nitrogen 6 mg/dL (7-20) L Creatinine 0.6 mg/dL (0.6-1.0) Estimated GFR (Cockcroft-Gault) 146.2 BUN/Creatinine Ratio 10 (6-20) Glucose Level 86 mg/dL (70-99) Calcium Level 9.1 mg/dL (8.5-10.1) Magnesium Level 1.9 mg/dL (1.8-2.4) Total Bilirubin 0.3 mg/dL (0.2-1.0) Aspartate Amino Transferase (AST) 21 U/L (15-37) Alanine Aminotransferase (ALT) 34 U/L (14-59) Alkaline Phosphatase 40 U/L (46-116) L Total Protein 7.5 g/dL (6.4-8.2) Albumin 4.1 g/dL (3.4-5.0) Albumin/Globulin Ratio 1.2 (1.0-1.7) POC Urine HCG, Qualitative Hcg positive (Negative) Laboratory Tests 09/18/19 16:18 Laboratory Tests 09/18/19 16:18 EKG EKG [] Radiology/Procedures Radiology/Procedures []Radiology/Procedures []PROCEDURE: OB <14 WKS W/TV EXAM: Obstetrics sonogram. HISTORY: Pain. TECHNIQUE: Sonographic imaging of a gravid uterus was performed. COMPARISON: None. FINDINGS: The uterus measures 8.9 x 5.4 x 6.3 cm. The endometrial stripe measures 1.4 cm in thickness. There is a small fluid collection within the endometrial cavity likely representing an early gestational sac with mean sac diameter of 3.3 mm, corresponding with a gestational age of 5 weeks and 0 days. No pole or yolk sac is seen. The ovaries are normal in size and demonstrate normal blood flow. There is no pelvic free fluid. IMPRESSION: 1. Suspected early gestational sac within the endometrial cavity with a mean sac diameter corresponding with a gestational age of 5 weeks and 0 days. No pole is seen at this early gestation. Short-term sonographic follow-up and correlation with serial beta-hCG levels is recommended to assess viability and exclude a pseudosac. 2. Otherwise, unremarkable pelvic sonogram. Electronically signed by: Marilee Portillo MD (09/04/2019 4:46 PM) [facility] Course & Med Decision Making Course & Med Decision Making Pertinent Labs and Imaging studies reviewed. (See chart for details) The patient has had trouble with morning sickness during past . Is not currently on nausea medication. I will check labs and give fluids/zofran. UA shows leukocytes. Will place on Keflex. Will also place on vitamins. Patient states Freddy has worked in ER. Will write a prescription for this. Dragon Disclaimer Dragon Disclaimer This electronic medical record was generated, in whole or in part, using a voice recognition dictation system. Departure Departure Impression: Primary Impression: Nausea and vomiting during Additional Impression: Urinary tract infection Disposition: 01 HOME, SELF-CARE Condition: STABLE Referrals: NO PCP (PCP) JACKIE RIVERS Jr, MD Patient Instructions: Nausea and Vomiting, - Urinary Tract Infection Additional Instructions: Thank you for visiting [facility]. We appreciate you trusting us with your care. If any additional problems come up don't hesitate to return to visit us. Please follow up with your primary care provider so they can plan additional care if needed and know about the problem that you had. If symptoms worsen come back to the Emergency Department. Any concerning symptoms that start such as chest pain, shortness of air, weakness or numbness on one side of the body, running high fevers or any other concerning symptoms return to the ER. Please fill your medications at any pharmacy and follow the prescription instructions. Please follow up with Dr. Rivers as previously scheduled. Scripts Pnv No.122/Iron/Folic Acid ( Multi Tablet) 1 Each Tablet 1 TAB PO DAILY for 30 Days, #30 TAB 0 Refills Prov: ADALBERTO SWAN APRN 09/18/19 Cephalexin (KEFLEX) 500 Mg Capsule 1 CAP PO BID for 7 Days, #14 CAP 0 Refills Prov: ADALBERTO SWAN APRN 09/18/19 Ondansetron (ONDANSETRON ODT) 4 Mg Tab.rapdis 1 TAB PO PRN Q6-8HRS PRN for NAUSEA, #16 TAB Prov: ADALBERTO SWAN APRN 09/18/19 Problem Qualifiers Additional Impression: Urinary tract infection Urinary tract infection type: acute cystitis Hematuria presence: without hematuria Qualified Codes: N30.00 - Acute cystitis without hematuria ADALBERTO SWAN EMERGENCY OPERATOR Sep 18, 2019 16:20
[2019-09-18] MEDS: ONDANSETRON PF 4 MG/2 ML VIAL. IV STA (16:25)
[2019-09-18] MEDS: IV NORMAL SALINE 1000ML BAG 1,000 ML IV ONE (16:26)
[2019-09-18 16:27] LABS: BILIRUBIN,URINE NEGATIVE (NEG); CLARITY,URINE TURBID; COLOR,URINE YELLOW; NITRITE,URINE NEGATIVE (NEG); PH,URINE 7.5; PROTEIN,URINE NEGATIVE (NEG-TRACE)
[2019-09-18 16:28] LABS: BASO % 0 % (0-3); EOS # 0.1 x10^3/uL (0.0-0.7); EOS % 2 % (0-3); HEMATOCRIT 43.7 % (36.0-47.0); HEMOGLOBIN 14.8 g/dL (12.0-15.5); LYMPH # 2.1 x10^3/uL (1.0-4.8); LYMPH % 34 % (24-48); MEAN CORPUSCULAR HEMOGLOBIN 31 pg (25-35); MEAN CORPUSCULAR HGB CONC 34 g/dL (31-37); MEAN CORPUSCULAR VOLUME 90 fL (79-100); MONO # 0.5 x10^3/uL (0.0-1.1); MONO % 8 % (0-9); NEUT # 3.4 x10^3/uL (1.8-7.7); NEUT % 56 % (31-73); PLATELET COUNT 239 x10^3/uL (140-400); RED BLOOD COUNT 4.85 x10^6/uL (3.50-5.40); RED CELL DISTRIBUTION WIDTH 13.2 % (11.5-14.5); WHITE BLOOD COUNT 6.1 x10^3/uL (4.0-11.0)
[2019-09-18 16:36] LABS: CALCIUM 9.1 mg/dL (8.5-10.1); CREATININE 0.6 mg/dL (0.6-1.0); GFR 146.2; POTASSIUM 3.6 mmol/L (3.5-5.1)
[2019-09-18 16:36] LABS: AMORPHOUS SEDIMENT,UR PRESENT /HPF; SQUAMOUS EPITHELIAL CELL,UR MANY /LPF
[2019-09-18 16:37] LABS: BACTERIA,URINE 0 /HPF (0-FEW); RBC,URINE 0 /HPF (0-2)
[2019-09-18 16:42] LABS: ALBUMIN 4.1 g/dL (3.4-5.0); ALBUMIN/GLOBULIN RATIO 1.2 (1.0-1.7); MAGNESIUM 1.9 mg/dL (1.8-2.4); TOTAL BILIRUBIN 0.3 mg/dL (0.2-1.0); TOTAL PROTEIN 7.5 g/dL (6.4-8.2)
[2019-09-18] MEDS ORDERED: CEPH-264 PO (17:12)
[2019-09-18] MEDS ORDERED: PNV1TABL78 PO (17:12)
[2019-09-18] MEDS ORDERED: ONDA4TAB12 PO (17:12)
[2019-09-18 17:40] VITALS: BP 138/77
== END 2019-09-18 17:40 | disposition home or self-care (01) ==
LOC: ER 15:51
DX: O23.11 Infections of bladder in pregnancy, first trimester (principal); O21.9 Vomiting of pregnancy, unspecified; O99.511 Diseases of the respiratory system complicating pregnancy, first trimester; J45.909 Unspecified asthma, uncomplicated; Z3A.01 Less than 8 weeks gestation of pregnancy
CPT/HCPCS: 36415; 80053; 81001; 81025; 83735; 84702; 85025; 87086; 96361; 96374; 99284; J2405; J7030

== ENCOUNTER 2019-09-20 08:56 | Emergency (ER) | payer MEDICAID ==
[~2019-09-20] VITALS: Ht 162.6 cm; Wt 63.0 kg
[~2019-09-20 08:56] MED LIST changes: +ONDA4TAB12 PO; +PNV1TABL78 PO
[2019-09-20] MEDS: IV NORMAL SALINE 1000ML BAG 1,000 ML IV ONE (10:01)
[2019-09-20] MEDS: PROCHLORPERAZINE 10 MG/2 ML VIAL. IV ONE (10:01)
[2019-09-20 10:17] LABS: BASO % 0 % (0-3); EOS # 0.1 x10^3/uL (0.0-0.7); EOS % 2 % (0-3); HEMATOCRIT 42.5 % (36.0-47.0); HEMOGLOBIN 14.1 g/dL (12.0-15.5); LYMPH # 1.3 x10^3/uL (1.0-4.8); LYMPH % 28 % (24-48); MEAN CORPUSCULAR HEMOGLOBIN 30 pg (25-35); MEAN CORPUSCULAR HGB CONC 33 g/dL (31-37); MEAN CORPUSCULAR VOLUME 90 fL (79-100); MONO # 0.4 x10^3/uL (0.0-1.1); MONO % 9 % (0-9); NEUT # 2.7 x10^3/uL (1.8-7.7); NEUT % 61 % (31-73); PLATELET COUNT 215 x10^3/uL (140-400); RED CELL DISTRIBUTION WIDTH 13.1 % (11.5-14.5); WHITE BLOOD COUNT 4.4 x10^3/uL (4.0-11.0)
[2019-09-20 10:21] LABS: CALCIUM 8.8 mg/dL (8.5-10.1); CREATININE 0.6 mg/dL (0.6-1.0); GFR 146.2; POTASSIUM 3.6 mmol/L (3.5-5.1)
[2019-09-20 10:22] LABS: BILIRUBIN,URINE NEGATIVE (NEG); CLARITY,URINE CLEAR; COLOR,URINE YELLOW; NITRITE,URINE NEGATIVE (NEG); PROTEIN,URINE NEGATIVE (NEG-TRACE)
[2019-09-20 10:27] LABS: ALBUMIN 3.9 g/dL (3.4-5.0); ALBUMIN/GLOBULIN RATIO 1.1 (1.0-1.7); TOTAL BILIRUBIN 0.4 mg/dL (0.2-1.0); TOTAL PROTEIN 7.3 g/dL (6.4-8.2)
[2019-09-20 10:30] LABS: BACTERIA,URINE FEW /HPF (0-FEW); BARBITURATES NEG (NEG); BENZODIAZEPINES NEG (NEG); CANNABINOIDS POS (NEG); COCAINE NEG (NEG); METHADONE NEG (NEG); OPIATES NEG (NEG); PHENCYCLIDINE NEG (NEG); RBC,URINE OCC /HPF (0-2); SQUAMOUS EPITHELIAL CELL,UR MANY /LPF
[2019-09-20 10:33] LABS: AMPHETAMINE/METHAMPHETAMINE NEG (NEG)
--- NOTE | 2019-09-20 10:36 | PHYS DOC ---
Past Medical History Past Medical History: Asthma, STD, Other Additional Past Medical Histor: miscarriage (RISHI HARRINGTON APRN) Past Surgical History: No Surgical History (RISHI HARRINGTON APRN) Alcohol Use: None Drug Use: None (RISHI HARRINGTON APRN) Adult General Chief Complaint Chief Complaint: VOMITING IN HPI HPI Patient is a 24 year old female 5 para 2, 2 abortions (ablated ovum and a miscarriage) currently 6 weeks who presents to the ED today complaining of nausea and vomiting in that has been on and off for the last 2 weeks. Patient has been seen in the ED several times since her . This is her third visit. She was seen 2 days ago for nausea and vomiting in and was given prescription for Zofran which she took yesterday but not this morning. She was seen by Dr. Rivers last week and has another appointment tomorrow. Denies any vaginal bleeding. She reports of "hunger pains" rated at 7 out of 10 generalize throughout the upper abdomen. Denies any exacerbating or relieving factors to her symptoms. (RISHI HARRINGTON APRN) Review of Systems Review of Systems Constitutional: Denies fever or chills [] Eyes: Denies change in visual acuity, redness, or eye pain [] HENT: Denies nasal congestion or sore throat [] Respiratory: Denies cough or shortness of breath [] Cardiovascular: No additional information not addressed in HPI [] GI: Reports nausea and vomiting in , denies any diarrhea, hematemesis. : Denies dysuria or hematuria [] Musculoskeletal: Denies back pain or joint pain [] Integument: Denies rash or skin lesions [] Neurologic: Denies headache, focal weakness or sensory changes [] All other systems were reviewed and found to be within normal limits, except as documented in this note. (RISHI HARRINGTON APRN) Current Medications Current Medications Current Medications Medications (Trade) Dose Ordered Sig/Jimbo Start Time Stop Time Status Last Admin Dose Admin Prochlorperazine Edisylate (Compazine) 10 mg 1X ONCE 09/20/19 09:45 09/20/19 09:46 DC 09/20/19 10:01 10 MG Sodium Chloride 1,000 ml @ 1,000 mls/hr 1X ONCE 09/20/19 09:45 09/20/19 10:44 DC 09/20/19 10:01 1,000 MLS/HR (ADALBERTO JOHNSON DO) Allergies Allergies Allergies Coded Allergies Type Severity Reaction Last Updated Verified No Known Drug Allergies 12/28/18 No (ADALBERTO JOHNSON DO) Physical Exam Physical Exam Constitutional: Well developed, well nourished, no acute distress, non-toxic appearance. [] HENT: Normocephalic, atraumatic, bilateral external ears normal, oropharynx moist, no oral exudates, nose normal. [] Eyes: PERRLA, EOMI, conjunctiva normal, no discharge. [] Neck: Normal range of motion, no tenderness, supple, no stridor. [] Cardiovascular:Heart rate regular rhythm, no murmur [] Lungs & Thorax: Bilateral breath sounds clear to auscultation [] Abdomen: Bowel sounds normal, soft, no tenderness, no masses, no pulsatile masses. [] Skin: Warm, dry, no erythema, no rash. [] Back: No tenderness, no CVA tenderness. [] Extremities: No tenderness, no cyanosis, no clubbing, ROM intact, no edema. [] Neurologic: Alert and oriented X 3, normal motor function, normal sensory function, no focal deficits noted. [] Psychologic: Affect normal, judgement normal, mood normal. [] (RISHI HARRINGTON APRN) Current Patient Data Vital Signs Vital Signs Date Time Temp Pulse Resp B/P (MAP) Pulse Ox O2 Delivery O2 Flow Rate FiO2 09/20/19 11:01 88 16 114/70 (85) 98 Room Air 09/20/19 09:32 98.9 98.9 (ADALBERTO JOHNSON DO) Lab Values Laboratory Tests Test 09/20/19 09:31 09/20/19 10:04 Urine Collection Type Unknown Urine Color Yellow Urine Clarity Clear Urine pH 7.0 Urine Specific [place] 1.020 Urine Protein Negative mg/dL (NEG-TRACE) Urine Glucose (UA) Negative mg/dL (NEG) Urine Ketones (Stick) Negative mg/dL (NEG) Urine Blood Negative (NEG) Urine Nitrite Negative (NEG) Urine Bilirubin Negative (NEG) Urine Urobilinogen Dipstick 1.0 mg/dL (0.2 mg/dL) Urine Leukocyte Esterase Trace (NEG) Urine RBC Occ /HPF (0-2) Urine WBC 1-4 /HPF (0-4) Urine Squamous Epithelial Cells Many /LPF Urine Bacteria Few /HPF (0-FEW) Urine Mucus Mod /LPF Urine Opiates Screen Neg (NEG) Urine Methadone Screen Neg (NEG) Urine Barbiturates Neg (NEG) Urine Phencyclidine Screen Neg (NEG) Urine Amphetamine/Methamphetamine Neg (NEG) Urine Benzodiazepines Screen Neg (NEG) Urine Cocaine Screen Neg (NEG) Urine Cannabinoids Screen Pos (NEG) Urine Ethyl Alcohol Neg (NEG) White Blood Count 4.4 x10^3/uL (4.0-11.0) Red Blood Count 4.70 x10^6/uL (3.50-5.40) Hemoglobin 14.1 g/dL (12.0-15.5) Hematocrit 42.5 % (36.0-47.0) Mean Corpuscular Volume 90 fL (79-100) Mean Corpuscular Hemoglobin 30 pg (25-35) Mean Corpuscular Hemoglobin Concent 33 g/dL (31-37) Red Cell Distribution Width 13.1 % (11.5-14.5) Platelet Count 215 x10^3/uL (140-400) Neutrophils (%) (Auto) 61 % (31-73) Lymphocytes (%) (Auto) 28 % (24-48) Monocytes (%) (Auto) 9 % (0-9) Eosinophils (%) (Auto) 2 % (0-3) Basophils (%) (Auto) 0 % (0-3) Neutrophils # (Auto) 2.7 x10^3/uL (1.8-7.7) Lymphocytes # (Auto) 1.3 x10^3/uL (1.0-4.8) Monocytes # (Auto) 0.4 x10^3/uL (0.0-1.1) Eosinophils # (Auto) 0.1 x10^3/uL (0.0-0.7) Basophils # (Auto) 0.0 x10^3/uL (0.0-0.2) Maternal Serum HCG Beta Subunit 18515 mIU/mL (0-5) H Sodium Level 136 mmol/L (136-145) Potassium Level 3.6 mmol/L (3.5-5.1) Chloride Level 102 mmol/L (98-107) Carbon Dioxide Level 26 mmol/L (21-32) Anion Gap 8 (6-14) Blood Urea Nitrogen 7 mg/dL (7-20) Creatinine 0.6 mg/dL (0.6-1.0) Estimated GFR (Cockcroft-Gault) 146.2 BUN/Creatinine Ratio 12 (6-20) Glucose Level 88 mg/dL (70-99) Calcium Level 8.8 mg/dL (8.5-10.1) Total Bilirubin 0.4 mg/dL (0.2-1.0) Aspartate Amino Transferase (AST) 21 U/L (15-37) Alanine Aminotransferase (ALT) 32 U/L (14-59) Alkaline Phosphatase 39 U/L (46-116) L Total Protein 7.3 g/dL (6.4-8.2) Albumin 3.9 g/dL (3.4-5.0) Albumin/Globulin Ratio 1.1 (1.0-1.7) Ethyl Alcohol Level < 10 mg/dL (0-10) Laboratory Tests 09/20/19 10:04 Laboratory Tests 09/20/19 10:04 Microbiology 09/20/19 Urine Culture - Final, Complete 09/20/19 Urine Culture Result 1 (CANDICE) - Final, Complete (ADALBERTO JOHNSON DO) EKG EKG [] (RISHI HARRINGTON APRN) Radiology/Procedures Radiology/Procedures [] (RISHI HARRINGTON APRN) Course & Med Decision Making Course & Med Decision Making Pertinent Labs and Imaging studies reviewed. (See chart for details) This is a 24-year-old female patient presenting to the ED today with nausea and vomiting in on and off for the last 2 weeks she is 6 weeks . Patient was seen in the ED 2 days ago for the same complaint, given Zofran. Was discharged. OB ultrasound two days ago showed an IUP. Labs were negative for any acute findings, UA shows trace amount of leukocytes, urine is contaminated with squamous cells. + for Marijuana use which could contribute to her symptoms. Patient was given 1 L of fluid and Compazine. She reports she is feeling better and asked for a snack, she was given pudding which she tolerated. D/c to home on compazine. F/u with Dr. Rivers tomorrow. (RISHI HARRINGTON APRN) Dragon Disclaimer Dragon Disclaimer This electronic medical record was generated, in whole or in part, using a voice recognition dictation system. (RISHI HARRINGTON APRN) Departure Departure Impression: Primary Impression: Nausea and vomiting during Disposition: HOME, SELF-CARE Condition: STABLE Referrals: NO PCP (PCP) follow up tomorrow as scheduled JACKIE RIVERS Jr, MD Patient Instructions: Diet - Hyperemesis Gravidarum, Hyperemesis Gravidarum Additional Instructions: You were seen for nausea and vomiting in . Take the prescribed nausea medicine as needed. See your RESIDENTIAL GREEN BUILDING DESIGNER tomorrow. Consider not smoking marijuana, it i ncreases the episodes vomiting in patients. Scripts Prochlorperazine Maleate (Compazine) 10 Mg Tablet 1 TAB PO Q8HRS, #21 TAB 0 Refills Prov: RISHI HARRINGTON APRN 09/20/19 Attending Signature Attending Signature I have reviewed the PA/MOBILITY SCOOTER REPAIRER's note and plan of care. I was available for consultation as needed during the patient's visit in the emergency department. I agree with the clinical impression, plan, and disposition. (ADALBERTO JOHNSON DO) RISHI HARRINGTON APRN Sep 20, 2019 10:36 ADALBERTO JOHNSON DO Sep 24, 2019 02:13
[2019-09-20 11:01] VITALS: BP 114/70
[2019-09-20] MEDS ORDERED: PROC10TA57 PO (11:01)
== END 2019-09-20 11:10 | disposition home or self-care (01) ==
LOC: ER 08:56
DX: O21.9 Vomiting of pregnancy, unspecified (principal); R10.84 Generalized abdominal pain; J45.909 Unspecified asthma, uncomplicated; Z3A.01 Less than 8 weeks gestation of pregnancy
CPT/HCPCS: 36415; 80053; 80307; 81001; 84702; 85025; 87086; 96361; 96374; 99284; G0480; J0780; J7030

== ENCOUNTER 2019-09-27 08:47 | Emergency (ER) | payer MEDICAID ==
[~2019-09-27] VITALS: Ht 162.6 cm; Wt 62.0 kg
[~2019-09-27 08:47] MED LIST changes: +PROC10TA57 PO
[2019-09-27 10:55] LABS: BILIRUBIN,URINE NEGATIVE (NEG); CLARITY,URINE TURBID; COLOR,URINE YELLOW; NITRITE,URINE NEGATIVE (NEG); PH,URINE 8.5; PROTEIN,URINE NEGATIVE (NEG-TRACE); UROBILINOGEN,URINE 0.2 mg/dL (0.2 mg/dL)
[2019-09-27] MEDS ORDERED: PROMETHAZINE 25 MG SUPP.RECT. PR ONE (11:00)
[2019-09-27 11:07] LABS: AMORPHOUS SEDIMENT,UR PRESENT /HPF; SQUAMOUS EPITHELIAL CELL,UR MOD /LPF
[2019-09-27 11:08] LABS: RBC,URINE 0 /HPF (0-2); WBC,URINE OCC /HPF (0-4)
[2019-09-27 11:09] LABS: BACTERIA,URINE 0 /HPF (0-FEW)
[2019-09-27 12:00] VITALS: BP 102/64
[2019-09-27 12:08] LABS: BARBITURATES NEG (NEG); BENZODIAZEPINES NEG (NEG); CANNABINOIDS POS (NEG); COCAINE NEG (NEG); METHADONE NEG (NEG); OPIATES NEG (NEG); PHENCYCLIDINE NEG (NEG)
[2019-09-27 12:11] LABS: AMPHETAMINE/METHAMPHETAMINE NEG (NEG)
--- NOTE | 2019-09-27 12:17 | PHYS DOC ---
Past Medical History Past Medical History: Asthma, STD, Other Additional Past Medical Histor: miscarriage Past Surgical History: No Surgical History Alcohol Use: None Drug Use: None Social History Narrative: pt reports stopping since being Adult General Chief Complaint Chief Complaint: ABDOMINAL PAIN IN HPI HPI Patient is a 24 year old female 5 para 2, 2 abortions (ablated ovum and a miscarriage) currently 8 weeks who presents to the ED today complaining of nausea and vomiting in that has been on and off for the last 3 weeks. Patient is also complaining of 5 out of 10 generalized abdominal pain described as "hunger pains" since this morning and requesting something to eat. She states she would like pudding right away. She denies any vaginal b leeding. Denies any hematemesis. Off note patient has been seen in the ED multiple times for her complaints. She was in the ED Sep 04,, and today is her fourth visit in this month. Review of Systems Review of Systems Constitutional: Denies fever or chills [] Eyes: Denies change in visual acuity, redness, or eye pain [] HENT: Denies nasal congestion or sore throat [] Respiratory: Denies cough or shortness of breath [] Cardiovascular: No additional information not addressed in HPI [] GI: Reports nausea and vomiting in , hunger pains, denies, bloody stools or diarrhea [] : Denies dysuria or hematuria [] Musculoskeletal: Denies back pain or joint pain [] Integument: Denies rash or skin lesions [] Neurologic: Denies headache, focal weakness or sensory changes [] All other systems were reviewed and found to be within normal limits, except as documented in this note. Current Medications Current Medications Current Medications Medications (Trade) Dose Ordered Sig/[facility] Start Time Stop Time Status Last Admin Dose Admin Promethazine HCl (Phenergan Supp) 25 mg 1X ONCE 09/27/19 11:00 09/27/19 11:01 DC 09/27/19 11:23 25 MG Allergies Allergies Allergies Coded Allergies Type Severity Reaction Last Updated Verified No Known Drug Allergies 12/28/18 No Physical Exam Physical Exam Constitutional: Well developed, well nourished, no acute distress, non-toxic appearance. [] HENT: Normocephalic, atraumatic, bilateral external ears normal, oropharynx moist, no oral exudates, nose normal. [] Eyes: PERRLA, EOMI, conjunctiva normal, no discharge. [] Neck: Normal range of motion, no tenderness, supple, no stridor. [] Cardiovascular:Heart rate regular rhythm, no murmur [] Lungs & Thorax: Bilateral breath sounds clear to auscultation [] Abdomen: Bowel sounds normal, soft, no tenderness, no masses, no pulsatile masses. [] Skin: Warm, dry, no erythema, no rash. [] Back: No tenderness, no CVA tenderness. [] Extremities: No tenderness, no cyanosis, no clubbing, ROM intact, no edema. [] Neurologic: Alert and oriented X 3, normal motor function, normal sensory function, no focal deficits noted. [] Psychologic: Affect normal, judgement normal, mood normal. [] Current Patient Data Vital Signs Vital Signs Date Time Temp Pulse Resp B/P (MAP) Pulse Ox O2 Delivery O2 Flow Rate FiO2 09/27/19 12:00 78 16 102/64 (77) 99 Room Air 09/27/19 10:05 98.2 98.2 Lab Values Laboratory Tests Test 09/27/19 08:55 09/27/19 09:00 Urine Collection Type Unknown Urine Color Yellow Urine Clarity Turbid Urine pH 8.5 Urine Specific [place] 1.020 Urine Protein Negative mg/dL (NEG-TRACE) Urine Glucose (UA) Negative mg/dL (NEG) Urine Ketones (Stick) Negative mg/dL (NEG) Urine Blood Negative (NEG) Urine Nitrite Negative (NEG) Urine Bilirubin Negative (NEG) Urine Urobilinogen Dipstick 0.2 mg/dL (0.2 mg/dL) Urine Leukocyte Esterase Trace (NEG) Urine RBC 0 /HPF (0-2) Urine WBC Occ /HPF (0-4) Urine Squamous Epithelial Cells Mod /LPF Urine Amorphous Sediment Present /HPF Urine Bacteria 0 /HPF (0-FEW) Urine Opiates Screen Neg (NEG) Urine Methadone Screen Neg (NEG) Urine Barbiturates Neg (NEG) Urine Phencyclidine Screen Neg (NEG) Urine Amphetamine/Methamphetamine Neg (NEG) Urine Benzodiazepines Screen Neg (NEG) Urine Cocaine Screen Neg (NEG) Urine Cannabinoids Screen Pos (NEG) Urine Ethyl Alcohol Neg (NEG) POC Urine HCG, Qualitative Hcg positive (Negative) EKG EKG [] Radiology/Procedures Radiology/Procedures [] Course & Med Decision Making Course & Med Decision Making Pertinent Labs and Imaging studies reviewed. (See chart for details) This is a 24-year-old female patient presenting to the ED today with nausea and vomiting in as well as hunger pains. Patient has been in the ED multiple times this month for similar complaints. She was in the ED Sep 04 for same complaints. She had an ultrasound done on September 04Sep 18 with IUP documented on ultrasound. She herself reports seeing her PLATE STACKER HAND on last week. She states the PLATE STACKER HAND told her to continue taking the nausea medicines she has at home. Today's visit her urine does not show any signs of dehydration. My first encounter with the patient today she asked me for pudding even before we gave her anything for nausea. I did try to inquire how bad her nausea and vomiting were patient continued to request food. I gave pudding and sprite which she tolerated with no issues. Off note patient has been arguing with the boyfriend out loud in the ED. The argument got so bad that the boyfriend had to walk away patient requested to leave. Encouraged to continue taking her nausea medications and follow-up with her PLATE STACKER HAND. Dragon Disclaimer Dragon Disclaimer This electronic medical record was generated, in whole or in part, using a voice recognition dictation system. Departure Departure Impression: Primary Impression: Nausea and vomiting during Disposition: 01 HOME, SELF-CARE Condition: STABLE Referrals: NO PCP (PCP) JACKIE FRIAS Jr, MD follow up in 1 week Patient Instructions: Diet - Hyperemesis Gravidarum, Hyperemesis Gravidarum Additional Instructions: Please continue taking the nausea and vomiting medications you've received from the emergency room and from your PLATE STACKER HAND. Please follow-up with your PLATE STACKER HAND as soon as you can. RISHI HARRINGTON VETERINARY MEDICAL OFFICER Sep 27, 2019 12:17
== END 2019-09-27 12:19 | disposition home or self-care (01) ==
LOC: ER 08:47
DX: O21.9 Vomiting of pregnancy, unspecified (principal); R10.84 Generalized abdominal pain; O99.511 Diseases of the respiratory system complicating pregnancy, first trimester; J45.909 Unspecified asthma, uncomplicated; Z3A.08 8 weeks gestation of pregnancy
CPT/HCPCS: 80307; 81001; 81025; 87086; 99284

== ENCOUNTER 2019-10-06 12:47 | Emergency (ER) | payer MEDICAID ==
[~2019-10-06] VITALS: Ht 162.6 cm; Wt 62.2 kg
[2019-10-06] MEDS ORDERED: ONDANSETRON PF 4 MG/2 ML VIAL. ONE (13:23)
[2019-10-06] MEDS ORDERED: PROCHLORPERAZINE 10 MG/2 ML VIAL. IV ONE (13:45)
[2019-10-06] MEDS ORDERED: IV NORMAL SALINE 1000ML BAG 1,000 ML IV ONE ×2 (13:45→14:45)
[2019-10-06 14:16] LABS: CREATININE 0.8 mg/dL (0.6-1.0); GFR 104.9; POTASSIUM 3.4 mmol/L (3.5-5.1)
[2019-10-06 14:22] LABS: ALBUMIN 4.3 g/dL (3.4-5.0); ALBUMIN/GLOBULIN RATIO 1.1 (1.0-1.7); TOTAL BILIRUBIN 0.5 mg/dL (0.2-1.0); TOTAL PROTEIN 8.2 g/dL (6.4-8.2)
--- NOTE | 2019-10-06 14:40 | PHYS DOC ---
Past Medical History Past Medical History: Asthma Additional Past Medical Histor: miscarriage Past Surgical History: No Surgical History Smoking Status: Current Every Day Smoker Additional Information: 09/02 ppd Alcohol Use: None Drug Use: None Adult General Chief Complaint Chief Complaint: VAGINAL BLEEDING HPI HPI Patient is a 24 year old female who presents with "having lower Brian cramping and moderate bleeding 10:00 this morning. She states she's gone through 3 pads today. Patient denies concerns for sexual transmitted diseases and states she has recently been checked for them. She had an appointment today with Dr. Rivers. Patient states she did not go because she is to stick to go. She states she's been having nausea and vomiting can't keep anything down. She states she's been nausea and vomiting every 10-15 minutes this morning. Patient has not vomited since she's been in the emergency room. She rates her pain currently is 0 out of 10. Has missed her period was August 03, 2019. She is 5 para 2. She states she's had 2 miscarriages and has 2 live children. Rhogam is ordered. Review of Systems Review of Systems : Vaginal bleeding. Denies dysuria or hematuria [] All other systems were reviewed and found to be within normal limits, except as documented in this note. Current Medications Current Medications Current Medications Medications (Trade) Dose Ordered Sig/Jimbo Start Time Stop Time Status Last Admin Dose Admin Ondansetron HCl (Zofran) 4 mg STK-MED ONCE 10/06/19 13:23 10/06/19 13:23 DC Prochlorperazine Edisylate (Compazine) 5 mg 1X ONCE 10/06/19 13:45 10/06/19 13:46 DC 10/06/19 13:45 5 MG Sodium Chloride 1,000 ml @ 1,000 mls/hr 1X ONCE 10/06/19 14:45 10/06/19 15:44 DC Allergies Allergies Allergies Coded Allergies Type Severity Reaction Last Updated Verified No Known Drug Allergies 12/28/18 No Physical Exam Physical Exam Constitutional: Well developed, well nourished, no acute distress, non-toxic appearance. [] HENT: Normocephalic, atraumatic, bilateral external ears normal, oropharynx moist, no oral exudates, nose normal. [] Eyes: PERRLA, EOMI, conjunctiva normal, no discharge. [] Neck: Normal range of motion, no tenderness, supple, no stridor. [] Cardiovascular:Heart rate regular rhythm, no murmur [] Lungs & Thorax: Bilateral breath sounds clear to auscultation [] Abdomen: Bowel sounds normal, soft, no tenderness, no masses, no pulsatile masses. [] Skin: Warm, dry, no erythema, no rash. [] Back: No tenderness, no CVA tenderness. [] Extremities: No tenderness, no cyanosis, no clubbing, ROM intact, no edema. [] Neurologic: Alert and oriented X 3, normal motor function, normal sensory function, no focal deficits noted. [] Psychologic: Affect normal, judgement normal, mood normal. [] Normal physical Exam Current Patient Data Vital Signs Vital Signs Date Time Temp Pulse Resp B/P (MAP) Pulse Ox O2 Delivery O2 Flow Rate FiO2 10/06/19 12:50 98.4 72 20 139/75 (96) 100 Room Air 98.4 Lab Values Laboratory Tests Test 10/06/19 13:18 10/06/19 14:25 10/06/19 15:30 10/06/19 15:32 Maternal Serum HCG Beta Subunit 698110 mIU/mL (0-5) H Sodium Level 136 mmol/L (136-145) Potassium Level 3.4 mmol/L (3.5-5.1) L Chloride Level 99 mmol/L (98-107) Carbon Dioxide Level 18 mmol/L (21-32) L Anion Gap 19 (6-14) H Blood Urea Nitrogen 10 mg/dL (7-20) Creatinine 0.8 mg/dL (0.6-1.0) Estimated GFR (Cockcroft-Gault) 104.9 BUN/Creatinine Ratio 13 (6-20) Glucose Level 98 mg/dL (70-99) Calcium Level 10.0 mg/dL (8.5-10.1) Total Bilirubin 0.5 mg/dL (0.2-1.0) Aspartate Amino Transferase (AST) 35 U/L (15-37) Alanine Aminotransferase (ALT) 52 U/L (14-59) Alkaline Phosphatase 49 U/L (46-116) Total Protein 8.2 g/dL (6.4-8.2) Albumin 4.3 g/dL (3.4-5.0) Albumin/Globulin Ratio 1.1 (1.0-1.7) White Blood Count 6.1 x10^3/uL (4.0-11.0) Red Blood Count 4.58 x10^6/uL (3.50-5.40) Hemoglobin 13.8 g/dL (12.0-15.5) Hematocrit 41.3 % (36.0-47.0) Mean Corpuscular Volume 90 fL (79-100) Mean Corpuscular Hemoglobin 30 pg (25-35) Mean Corpuscular Hemoglobin Concent 33 g/dL (31-37) Red Cell Distribution Width 12.8 % (11.5-14.5) Platelet Count 242 x10^3/uL (140-400) Neutrophils (%) (Auto) 84 % (31-73) H Lymphocytes (%) (Auto) 12 % (24-48) L Monocytes (%) (Auto) 4 % (0-9) Eosinophils (%) (Auto) 0 % (0-3) Basophils (%) (Auto) 1 % (0-3) Neutrophils # (Auto) 5.1 x10^3/uL (1.8-7.7) Lymphocytes # (Auto) 0.7 x10^3/uL (1.0-4.8) L Monocytes # (Auto) 0.2 x10^3/uL (0.0-1.1) Eosinophils # (Auto) 0.0 x10^3/uL (0.0-0.7) Basophils # (Auto) 0.0 x10^3/uL (0.0-0.2) Urine Collection Type Unknown Urine Color Yellow Urine Clarity Clear Urine pH 7.5 Urine Specific [place] >=1.030 Urine Protein 100 mg/dL (NEG-TRACE) Urine Glucose (UA) Negative mg/dL (NEG) Urine Ketones (Stick) >=80 mg/dL (NEG) Urine Blood Moderate (NEG) Urine Nitrite Negative (NEG) Urine Bilirubin Negative (NEG) Urine Urobilinogen Dipstick 0.2 mg/dL (0.2 mg/dL) Urine Leukocyte Esterase Negative (NEG) Urine RBC >40 /HPF (0-2) Urine WBC Occ /HPF (0-4) Urine Squamous Epithelial Cells Occ /LPF Urine Bacteria 0 /HPF (0-FEW) Urine Mucus Marked /LPF Urine Opiates Screen Neg (NEG) Urine Methadone Screen Neg (NEG) Urine Barbiturates Neg (NEG) Urine Phencyclidine Screen Neg (NEG) Urine Amphetamine/Methamphetamine Neg (NEG) Urine Benzodiazepines Screen Neg (NEG) Urine Cocaine Screen Neg (NEG) Urine Cannabinoids Screen Pos (NEG) Urine Ethyl Alcohol Neg (NEG) POC Urine HCG, Qualitative Hcg positive (Negative) Laboratory Tests 10/06/19 14:25 Laboratory Tests 10/06/19 13:18 EKG EKG [] Radiology/Procedures Radiology/Procedures [] Impressions: [facility] [address] [place] [address] IMAGING REPORT Signed PATIENT: JYOTI NUR SACCOUNT: [id number] : 1995 LOCATION: ER AGE: 24 SEX: F EXAM STATUS: PRE ER ORD. PHYSICIAN: YANI LIVINGSTON APRN REASON: vaginal bleeding; cramps PROCEDURE: OB < 14 WKS Exam: Ultrasound OB less than 14 weeks Indication: Vaginal bleeding Technique: Real-time grayscale and color Doppler images of the pelvis were obtained by the department electromechanical technician. Comparisons: 09/04/2019 FINDINGS: Uterus measures 10.7 x 7.5 x 6.2 cm. Endometrium is thickened and somewhat heterogenous in appearance. Right ovary measures 4.3 x 1.9 x 2.3 cm. Left ovary measures 3.0 x 1.9 x 1.1 cm. Vascular flow noted within the ovaries. IMPRESSION: The previously seen questionable gestational sac is no longer identified with a thickened heterogenous endometrium. No gestational sac, pole or yolk sac are seen. Findings are suspicious for failed however are not definitive as a intrauterine was not confirmed via ultrasound on the prior. Correlate with any outside ultrasounds that have been done in the interim. Recommend correlation with serial beta hCG measurements and short-term follow-up ultrasound. Electronically signed by: Alfonso David MD (10/06/2019 3:42 PM) [id number] DICTATED and SIGNED BY: ALFONSO DAVID MD DATE: 10/06/19 1542 Course & Med Decision Making Course & Med Decision Making Pertinent Labs and Imaging studies reviewed. (See chart for details) Abdomen soft and nontender. Alert and oriented. Ambulatory with steady gait. Skin pink Warm and dry. Vital signs within normal limits. Patient denies chest pain, shortness of air, dizziness, headache, syncope, visual changes, numbness or tingling, abdominal pain, dysuria, weakness. Lungs are clear to auscultation. Pelvic Exam: Geophysical Prospecting Permit Agent present Abdomen: Nontender External Genitalia: Normal Skin Speculum: Normal vaginal mucosa, moderate bleeding with clots cervical discharge Bimanual: No adnexal masses or tenderness, No CMT []IMPRESSION: The previously seen questionable gestational sac is no longer identified with a thickened heterogenous endometrium. No gestational sac, pole or yolk sac are seen. Findings are suspicious for failed however are not definitive as a intrauterine was not confirmed via ultrasound on the prior. Correlate with any outside ultrasounds that have been done in the interim. Recommend correlation with serial beta hCG measurements and short-term follow-up ultrasound. I have spoken to Dr Snider and he is coming to speak with the patient and examine her. 1634: Dr Snider went in and spoke with the patient. He states to refer her to him for any further care such she needs. He states the bleeding has slowed considerably. No D&C needed at this time. Dragon Disclaimer Dragon Disclaimer This electronic medical record was generated, in whole or in part, using a voice recognition dictation system. Departure Departure Impression: Primary Impression: Vaginal bleeding in Additional Impression: Miscarriage Disposition: HOME, SELF-CARE Condition: STABLE Referrals: NO PCP (PCP) ADALBERTO SNIDER MD Patient Instructions: Recurrent Miscarriage Additional Instructions: Follow up with Dr Snider if needed. If you begin to go through more than 1 pad a hour return to ED. Problem Qualifiers YANI LIVINGSTON MANAGEMENT TRAINEE Oct 06, 2019 14:40
[2019-10-06 14:54] LABS: BASO % 1 % (0-3); EOS % 0 % (0-3); HEMATOCRIT 41.3 % (36.0-47.0); HEMOGLOBIN 13.8 g/dL (12.0-15.5); LYMPH # 0.7 x10^3/uL (1.0-4.8); LYMPH % 12 % (24-48); MEAN CORPUSCULAR HEMOGLOBIN 30 pg (25-35); MEAN CORPUSCULAR HGB CONC 33 g/dL (31-37); MEAN CORPUSCULAR VOLUME 90 fL (79-100); MONO # 0.2 x10^3/uL (0.0-1.1); MONO % 4 % (0-9); NEUT # 5.1 x10^3/uL (1.8-7.7); NEUT % 84 % (31-73); PLATELET COUNT 242 x10^3/uL (140-400); RED BLOOD COUNT 4.58 x10^6/uL (3.50-5.40); RED CELL DISTRIBUTION WIDTH 12.8 % (11.5-14.5); WHITE BLOOD COUNT 6.1 x10^3/uL (4.0-11.0)
[2019-10-06 15:42] LABS: BILIRUBIN,URINE NEGATIVE (NEG); CLARITY,URINE CLEAR; COLOR,URINE YELLOW; NITRITE,URINE NEGATIVE (NEG); PH,URINE 7.5; PROTEIN,URINE 100 mg/dL (NEG-TRACE); UROBILINOGEN,URINE 0.2 mg/dL (0.2 mg/dL)
--- NOTE | 2019-10-06 15:45 | RAD ---
Exam: Ultrasound OB less than 14 weeks Indication: Vaginal bleeding Technique: Real-time grayscale and color Doppler images of the pelvis were obtained by the department scanning supervisor. Comparisons: 09/04/2019 FINDINGS: Uterus measures 10.7 x 7.5 x 6.2 cm. Endometrium is thickened and somewhat heterogenous in appearance. Right ovary measures 4.3 x 1.9 x 2.3 cm. Left ovary measures 3.0 x 1.9 x 1.1 cm. Vascular flow noted within the ovaries. IMPRESSION: The previously seen questionable gestational sac is no longer identified with a thickened heterogenous endometrium. No gestational sac, pole or yolk sac are seen. Findings are suspicious for failed however are not definitive as a intrauterine was not confirmed via ultrasound on the prior. Correlate with any outside ultrasounds that have been done in the interim. Recommend correlation with serial beta hCG measurements and short-term follow-up ultrasound. Electronically signed by: Alfonso Stewart MD (10/06/2019 3:42 PM) [id number]
[2019-10-06 15:56] LABS: AMPHETAMINE/METHAMPHETAMINE NEG (NEG); BACTERIA,URINE 0 /HPF (0-FEW); BARBITURATES NEG (NEG); BENZODIAZEPINES NEG (NEG); CANNABINOIDS POS (NEG); COCAINE NEG (NEG); METHADONE NEG (NEG); OPIATES NEG (NEG); PHENCYCLIDINE NEG (NEG); RBC,URINE >40 /HPF (0-2); SQUAMOUS EPITHELIAL CELL,UR OCC /LPF; WBC,URINE OCC /HPF (0-4)
[2019-10-06 16:49] VITALS: BP 138/76
--- NOTE | 2019-10-06 16:52 | PDOC2 ---
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 On an u/s on 09/04/19 the pt had a documented gestational sac. Today the gestational sac is no longer present. The bleeding that brought her to the ER was very significant, but it has slowed greatly. She is still passing some moderate sized clots. 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 08/03/19 9yo / regular SH: no tob, no EtOH Current Problem List Problem List Problems Medical Problems: (1) Miscarriage Status: Acute (2) Vaginal bleeding in Status: Acute Current Medications Current Medications Current Medications Ondansetron HCl (Zofran) 4 mg STK-MED ONCE .ROUTE ; Start 10/06/19 at 13:23; Stop 10/06/19 at 13:23; Status DC Sodium Chloride 1,000 ml @ 1,000 mls/hr 1X ONCE IV Last administered on 10/06/19at 13:45; Start 10/06/19 at 13:45; Stop 10/06/19 at 14:44; Status DC Prochlorperazine Edisylate (Compazine) 5 mg 1X ONCE IV Last administered on 10/06/19at 13:45; Start 10/06/19 at 13:45; Stop 10/06/19 at 13:46; Status DC Sodium Chloride 1,000 ml @ 1,000 mls/hr 1X ONCE IV ; Start 10/06/19 at 14:45; Stop 10/06/19 at 15:44; Status DC Active Scripts Active Compazine (Prochlorperazine Maleate) 10 Mg Tablet 1 Tab PO Q8HRS Multi Tablet (Pnv No.122/Iron/Folic Acid) 1 Each Tablet 1 Tab PO DAILY 30 Days Keflex (Cephalexin) 500 Mg Capsule 1 Cap PO BID 7 Days Ondansetron Odt (Ondansetron) 4 Mg Tab.rapdis 1 Tab PO PRN Q6-8HRS PRN Flagyl (Metronidazole) 500 Mg Tablet 1 Tab PO BID Zithromax (Azithromycin) 250 Mg Tablet 1 Pkg PO UD Tessalon Perle (Benzonatate) 100 Mg Capsule 1 Cap PO TID Medrol (Methylprednisolone) 4 Mg Tab.ds.pk 1 Pkg PO UD Keflex (Cephalexin) 500 Mg Capsule 1 Cap PO BID Allergies Allergies: Coded Allergies: No Known Drug Allergies (Unverified , 12/28/18) Physical Exam Physical Exam CTAB RRR S/NT/ND No C/C/E Vitals VITALS Vital Signs Date Time Temp Pulse Resp B/P (MAP) Pulse Ox O2 Delivery O2 Flow Rate FiO2 10/06/19 12:50 98.4 72 20 139/75 (96) 100 Room Air 98.4 Labs Labs Laboratory Tests Test 10/06/19 13:18 10/06/19 14:25 10/06/19 15:30 10/06/19 15:32 Maternal Serum HCG Beta Subunit 977079 mIU/mL (0-5) Sodium Level 136 mmol/L (136-145) Potassium Level 3.4 mmol/L (3.5-5.1) Chloride Level 99 mmol/L (98-107) Carbon Dioxide Level 18 mmol/L (21-32) Anion Gap 19 (6-14) Blood Urea Nitrogen 10 mg/dL (7-20) Creatinine 0.8 mg/dL (0.6-1.0) Estimated GFR (Cockcroft-Gault) 104.9 BUN/Creatinine Ratio 13 (6-20) Glucose Level 98 mg/dL (70-99) Calcium Level 10.0 mg/dL (8.5-10.1) Total Bilirubin 0.5 mg/dL (0.2-1.0) Aspartate Amino Transf (AST/SGOT) 35 U/L (15-37) Alanine Aminotransferase (ALT/SGPT) 52 U/L (14-59) Alkaline Phosphatase 49 U/L (46-116) Total Protein 8.2 g/dL (6.4-8.2) Albumin 4.3 g/dL (3.4-5.0) Albumin/Globulin Ratio 1.1 (1.0-1.7) White Blood Count 6.1 x10^3/uL (4.0-11.0) Red Blood Count 4.58 x10^6/uL (3.50-5.40) Hemoglobin 13.8 g/dL (12.0-15.5) Hematocrit 41.3 % (36.0-47.0) Mean Corpuscular Volume 90 fL (79-100) Mean Corpuscular Hemoglobin 30 pg (25-35) Mean Corpuscular Hemoglobin Concent 33 g/dL (31-37) Red Cell Distribution Width 12.8 % (11.5-14.5) Platelet Count 242 x10^3/uL (140-400) Neutrophils (%) (Auto) 84 % (31-73) Lymphocytes (%) (Auto) 12 % (24-48) Monocytes (%) (Auto) 4 % (0-9) Eosinophils (%) (Auto) 0 % (0-3) Basophils (%) (Auto) 1 % (0-3) Neutrophils # (Auto) 5.1 x10^3/uL (1.8-7.7) Lymphocytes # (Auto) 0.7 x10^3/uL (1.0-4.8) Monocytes # (Auto) 0.2 x10^3/uL (0.0-1.1) Eosinophils # (Auto) 0.0 x10^3/uL (0.0-0.7) Basophils # (Auto) 0.0 x10^3/uL (0.0-0.2) Urine Collection Type Unknown Urine Color Yellow Urine Clarity Clear Urine pH 7.5 Urine Specific [place] >=1.030 Urine Protein 100 mg/dL (NEG-TRACE) Urine Glucose (UA) Negative mg/dL (NEG) Urine Ketones (Stick) >=80 mg/dL (NEG) Urine Blood Moderate (NEG) Urine Nitrite Negative (NEG) Urine Bilirubin Negative (NEG) Urine Urobilinogen Dipstick 0.2 mg/dL (0.2 mg/dL) Urine Leukocyte Esterase Negative (NEG) Urine RBC >40 /HPF (0-2) Urine WBC Occ /HPF (0-4) Urine Squamous Epithelial Cells Occ /LPF Urine Bacteria 0 /HPF (0-FEW) Urine Mucus Marked /LPF Urine Opiates Screen Neg (NEG) Urine Methadone Screen Neg (NEG) Urine Barbiturates Neg (NEG) Urine Phencyclidine Screen Neg (NEG) Urine Amphetamine/Methamphetamine Neg (NEG) Urine Benzodiazepines Screen Neg (NEG) Urine Cocaine Screen Neg (NEG) Urine Cannabinoids Screen Pos (NEG) Urine Ethyl Alcohol Neg (NEG) Bedside Urine HCG, Qualitative Hcg positive (Negative) Laboratory Tests Test 10/06/19 13:18 10/06/19 14:25 10/06/19 15:30 10/06/19 15:32 Maternal Serum HCG Beta Subunit [id number] mIU/mL (0-5) Sodium Level 136 mmol/L (136-145) Potassium Level 3.4 mmol/L (3.5-5.1) Chloride Level 99 mmol/L (98-107) Carbon Dioxide Level 18 mmol/L (21-32) Anion Gap 19 (6-14) Blood Urea Nitrogen 10 mg/dL (7-20) Creatinine 0.8 mg/dL (0.6-1.0) Estimated GFR (Cockcroft-Gault) 104.9 BUN/Creatinine Ratio 13 (6-20) Glucose Level 98 mg/dL (70-99) Calcium Level 10.0 mg/dL (8.5-10.1) Total Bilirubin 0.5 mg/dL (0.2-1.0) Aspartate Amino Transf (AST/SGOT) 35 U/L (15-37) Alanine Aminotransferase (ALT/SGPT) 52 U/L (14-59) Alkaline Phosphatase 49 U/L (46-116) Total Protein 8.2 g/dL (6.4-8.2) Albumin 4.3 g/dL (3.4-5.0) Albumin/Globulin Ratio 1.1 (1.0-1.7) White Blood Count 6.1 x10^3/uL (4.0-11.0) Red Blood Count 4.58 x10^6/uL (3.50-5.40) Hemoglobin 13.8 g/dL (12.0-15.5) Hematocrit 41.3 % (36.0-47.0) Mean Corpuscular Volume 90 fL (79-100) Mean Corpuscular Hemoglobin 30 pg (25-35) Mean Corpuscular Hemoglobin Concent 33 g/dL (31-37) Red Cell Distribution Width 12.8 % (11.5-14.5) Platelet Count 242 x10^3/uL (140-400) Neutrophils (%) (Auto) 84 % (31-73) Lymphocytes (%) (Auto) 12 % (24-48) Monocytes (%) (Auto) 4 % (0-9) Eosinophils (%) (Auto) 0 % (0-3) Basophils (%) (Auto) 1 % (0-3) Neutrophils # (Auto) 5.1 x10^3/uL (1.8-7.7) Lymphocytes # (Auto) 0.7 x10^3/uL (1.0-4.8) Monocytes # (Auto) 0.2 x10^3/uL (0.0-1.1) Eosinophils # (Auto) 0.0 x10^3/uL (0.0-0.7) Basophils # (Auto) 0.0 x10^3/uL (0.0-0.2) Urine Collection Type Unknown Urine Color Yellow Urine Clarity Clear Urine pH 7.5 Urine Specific [place] >=1.030 Urine Protein 100 mg/dL (NEG-TRACE) Urine Glucose (UA) Negative mg/dL (NEG) Urine Ketones (Stick) >=80 mg/dL (NEG) Urine Blood Moderate (NEG) Urine Nitrite Negative (NEG) Urine Bilirubin Negative (NEG) Urine Urobilinogen Dipstick 0.2 mg/dL (0.2 mg/dL) Urine Leukocyte Esterase Negative (NEG) Urine RBC >40 /HPF (0-2) Urine WBC Occ /HPF (0-4) Urine Squamous Epithelial Cells Occ /LPF Urine Bacteria 0 /HPF (0-FEW) Urine Mucus Marked /LPF Urine Opiates Screen Neg (NEG) Urine Methadone Screen Neg (NEG) Urine Barbiturates Neg (NEG) Urine Phencyclidine Screen Neg (NEG) Urine Amphetamine/Methamphetamine Neg (NEG) Urine Benzodiazepines Screen Neg (NEG) Urine Cocaine Screen Neg (NEG) Urine Cannabinoids Screen Pos (NEG) Urine Ethyl Alcohol Neg (NEG) Bedside Urine HCG, Qualitative Hcg positive (Negative) Assessment/Plan Assessment/Plan A/P 24y with presumed missed AB 1.) Missed AB based on finding on imaging and presentation, since the pt bleeding has slowed significantly no intervention (like D&C) is necessary at this time, bleeding precautions given. 2.) O neg - Rhogam is ordered 3.) Contraception pt does not plan to attempt another at his time and desires some form of contraception, she would like to discuss her options on an outpt basis ADALBERTO SNIDER MDb 7, 2020 16:52
[2019-10-06 17:25] VITALS: BP 115/67
== END 2019-10-06 17:29 | disposition home or self-care (01) ==
LOC: ER 12:47
DX: O46.91 Antepartum hemorrhage, unspecified, first trimester (principal); O03.9 Complete or unspecified spontaneous abortion without complication; O21.9 Vomiting of pregnancy, unspecified; J45.909 Unspecified asthma, uncomplicated; F17.200 Nicotine dependence, unspecified, uncomplicated; Z3A.10 10 weeks gestation of pregnancy
CPT/HCPCS: 36415; 76801; 80053; 80307; 81001; 81025; 84702; 85025; 86850; 86900; 86901; 96361; 96374; 99285; J0780; J2791; J7030

== ENCOUNTER 2020-03-23 09:07 | Emergency (ER) | payer MEDICAID ==
[~2020-03-23] VITALS: Ht 162.6 cm; Wt 54.0 kg
[2020-03-23] MEDS ORDERED: IV NORMAL SALINE 1000ML BAG 1,000 ML IV SCH (09:33)
[2020-03-23 09:40] LABS: BILIRUBIN,URINE NEGATIVE (NEG); CLARITY,URINE TURBID; COLOR,URINE YELLOW; NITRITE,URINE NEGATIVE (NEG); PH,URINE 8.5 (<5.0-8.0); PROTEIN,URINE NEGATIVE (NEG-TRACE); UROBILINOGEN,URINE 0.2 mg/dL (0.2 mg/dL)
[2020-03-23 09:54] LABS: AMORPHOUS SEDIMENT,UR PRESENT /HPF; BACTERIA,URINE FEW /HPF (0-FEW); RBC,URINE OCC /HPF (0-2); SQUAMOUS EPITHELIAL CELL,UR MOD /LPF
[2020-03-23] MEDS: MORPHINE SULFATE 4 MG/ML VIAL. IV/SQ PRN ×2 (10:05→11:31)
--- NOTE | 2020-03-23 10:10 | PHYS DOC ---
Past Medical History Past Medical History: Asthma Additional Past Medical Histor: miscarriage Past Surgical History: No Surgical History Smoking Status: Current Every Day Smoker Alcohol Use: None Drug Use: None General Adult EDM: Chief Complaint: FLANK PAIN HPI: HPI: 24-year-old female with no known known medical comorbidities presents for 3 days of abdominal pain. Nothing known makes better or worse. Pain described as sharp and focal to right flank area. Severity is 10 out of 10 pain at this time. She has not taken anything to alleviate sudden pain. Timing of symptoms has been constant since onset. Associated symptoms include nausea and several bouts of nonbilious nonbloody vomit. She denies any known COVID exposure, concerning ingestions or recent travel. Of note, patient claims she is less than 2 months . 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 [] Eyes: Denies change in visual acuity. [] HENT: Denies nasal congestion or sore throat. [] Respiratory: Denies cough or shortness of breath. [] Cardiovascular: Denies chest pain or edema. [] GI: Denies bloody stool. Abdominal pain as reported in HPI. Positive for nausea and nonbilious nonbloody episodes of vomit. : Denies dysuria. No vaginal discharge. No bleeding Musculoskeletal: Denies back pain or joint pain. [] Integument: Denies rash. [] Neurologic: Denies headache, focal weakness or sensory changes. [] Endocrine: Denies polyuria or polydipsia. [] Lymphatic: Denies swollen glands. [] Heart Score: HEART Score for Chest Pain: HEART Score for Chest Pain Response (Comments) Value History Slighlty/Non-Suspicious 0 ECG Normal 0 Total 0 Risk Factors: Risk Factors: DM, Current or recent (<one month) smoker, HTN, HLP, family history of CAD, obesity. Risk Scores: Score 0 - 3: 2.5% MACE over next 6 weeks - Discharge Home Score 4 - 6: 20.3% MACE over next 6 weeks - Admit for Clinical Observation Score 7 - 10: 72.7% MACE over next 6 weeks - Early Invasive Strategies Current Medications: Current Medications Medications (Trade) Dose Ordered Sig/Jimbo Start Time Stop Time Status Last Admin Dose Admin Morphine Sulfate (Morphine Sulfate) 4 mg PRN Q15MIN PRN 7/25/20 09:45 03/24/20 09:44 03/23/20 10:05 4 MG Sodium Chloride 1,000 ml @ 1,000 mls/hr Q1H 03/23/20 09:33 03/23/20 10:32 03/23/20 10:04 1,000 MLS/HR Allergies: Allergies: Allergies Coded Allergies Type Severity Reaction Last Updated Verified No Known Drug Allergies 12/28/18 No Physical Exam: PE: Constitutional: Well developed, well nourished, no acute distress, non-toxic appearance. [] HENT: Normocephalic, atraumatic, bilateral external ears normal, oropharynx moist, no oral exudates, nose normal. [] Eyes: PERRLA, EOMI, conjunctiva normal, no discharge. [] Neck: Normal range of motion, no tenderness, supple, no stridor. [] Cardiovascular:Heart rate regular rhythm, no murmur [] Lungs & Thorax: Bilateral breath sounds clear to auscultation [] Abdomen: Bowel sounds normal, soft, no tenderness, no masses, no pulsatile masses. [] Skin: Warm, dry, no erythema, no rash. [] Back: No tenderness, no CVA tenderness. [] Extremities: No tenderness, no cyanosis, no clubbing, ROM intact, no edema. [] Neurologic: Alert and oriented X 3, normal motor function, normal sensory function, no focal deficits noted. [] Psychologic: Affect normal, judgement normal, mood normal. [] Current Patient Data: Labs: Laboratory Tests Test 03/23/20 09:10 03/23/20 09:24 03/23/20 10:00 Urine Collection Type Void Urine Color Yellow Urine Clarity Turbid Urine pH 8.5 Urine Specific [place] 1.020 Urine Protein Negative mg/dL Urine Glucose (UA) Negative mg/dL Urine Ketones (Stick) Negative mg/dL Urine Blood Negative Urine Nitrite Negative Urine Bilirubin Negative Urine Urobilinogen Dipstick 0.2 mg/dL Urine Leukocyte Esterase Negative Urine RBC Occ /HPF Urine WBC 1-4 /HPF Urine Squamous Epithelial Cells Mod /LPF Urine Amorphous Sediment Present /HPF Urine Bacteria Few /HPF Urine Mucus Mod /LPF Bedside Urine HCG, Qualitative Hcg positive White Blood Count 4.9 x10^3/uL Red Blood Count 4.53 x10^6/uL Hemoglobin 13.8 g/dL Hematocrit 39.7 % Mean Corpuscular Volume 88 fL Mean Corpuscular Hemoglobin 30 pg Mean Corpuscular Hemoglobin Concent 35 g/dL Red Cell Distribution Width 13.5 % Platelet Count 228 x10^3/uL Neutrophils (%) (Auto) 63 % Lymphocytes (%) (Auto) 28 % Monocytes (%) (Auto) 7 % Eosinophils (%) (Auto) 2 % Basophils (%) (Auto) 1 % Neutrophils # (Auto) 3.1 x10^3/uL Lymphocytes # (Auto) 1.4 x10^3/uL Monocytes # (Auto) 0.3 x10^3/uL Eosinophils # (Auto) 0.1 x10^3/uL Basophils # (Auto) 0.1 x10^3/uL Maternal Serum HCG Beta Subunit 425136 mIU/mL Sodium Level 135 mmol/L Potassium Level 3.8 mmol/L Chloride Level 100 mmol/L Carbon Dioxide Level 22 mmol/L Anion Gap 13 Blood Urea Nitrogen 6 mg/dL Creatinine 0.7 mg/dL Estimated GFR (Cockcroft-Gault) 122.4 BUN/Creatinine Ratio 9 Glucose Level 93 mg/dL Calcium Level 9.0 mg/dL Total Bilirubin 0.4 mg/dL Aspartate Amino Transf (AST/SGOT) 17 U/L Alanine Aminotransferase (ALT/SGPT) 29 U/L Alkaline Phosphatase 41 U/L Total Protein 7.4 g/dL Albumin 3.7 g/dL Albumin/Globulin Ratio 1.0 Lipase 174 U/L Current Medications Medications (Trade) Dose Ordered Sig/Jimbo Route PRN Reason Start Time Stop Time Status Last Admin Dose Admin Sodium Chloride 1,000 ml @ 1,000 mls/hr Q1H IV 03/23/20 09:33 03/23/20 10:32 DC 03/23/20 10:04 Morphine Sulfate (Morphine Sulfate) 4 mg PRN Q15MIN PRN IV/SQ PAIN GREATER THAN 3/10 03/23/20 09:45 03/23/20 12:26 DC 03/23/20 11:31 Ondansetron HCl (Zofran) 4 mg 1X ONCE IM 03/23/20 11:15 03/23/20 11:18 DC 03/23/20 11:30 Vital Signs: Vital Signs Date Time Temp Pulse Resp B/P (MAP) Pulse Ox O2 Delivery O2 Flow Rate FiO2 03/23/20 12:00 72 16 116/68 (84) 99 Room Air 03/23/20 09:15 98.1 99 22 124/66 (85) 99 Room Air 98.1 EKG: EKG: EKG obtained and interpreted by myself at 095 7 hours as normal sinus rhythm at 81 bpm, unremarkable intervals, no axis deviation, no ischemic signs, no STEMI Radiology/Procedures: Radiology/Procedures: PROCEDURE: OB < 14 WKS EXAM: Abdomen sonogram; obstetrics sonogram. HISTORY: Right flank pain. TECHNIQUE: Sonographic imaging of the abdomen and a gravid uterus was performed. COMPARISON: 10/06/2019. FINDINGS: The liver is normal in size. No focal hepatic lesion is seen. The gallbladder is unremarkable. The common bile duct is normal in caliber. The right kidney is unremarkable. The pancreas is unremarkable. The inferior vena cava is patent. The appendix is not seen. There is a single intrauterine gestational sac and fetus with yolk sac. The crown-rump length is 4.57 cm, corresponding with a gestational age of 11 weeks and 3 days. The heart rate is normal at 163 bpm. The cervix is closed and long. The uterus is normal in size. The gestational sac is normal in configuration and location. The ovaries are unremarkable. No subchorionic hematoma is seen. IMPRESSION: 1. Single intrauterine fetus with normal heart rate and gestational age of 11 weeks and 3 days. 2. Nonvisualization of the appendix. The abdominal sonogram is otherwise unremarkable. Electronically signed by: Marilee Portillo MD (03/23/2020 11:23 AM) [id number] Course & Med Decision Making: Course & Med Decision Making Patient seen immediately on ED arrival by myself after brief chart review Hemodynamically stable, comprehensive history and physical exam non-concerning for any emergent conditions IV access obtained. IV fluids, antinausea medicine and pain medications administered with improvement in symptoms Pertinent Labs and Imaging studies reviewed. (See chart for details) Discussed findings of no emergent conditions. Also discussed finding of one single intrauterine fetus with gestational age of 11 weeks and 3 days ED course reviewed with patient in entirety with good understanding demonstrated. Discussed importance of following up with PCP and [employer] for further obstetric care Discussed at length strict return precautions with good understanding. All questions and concerns addressed prior to discharge. Patient discharged in stable condition with Zofran PRN nausea Dragon Disclaimer: Yecenia Disclaimer: This electronic medical record was generated, in whole or in part, using a voice recognition dictation system. Departure Departure Impression: Primary Impression: Abdominal pain in Disposition: 01 HOME, SELF-CARE Condition: IMPROVED Referrals: NO PCP (PCP) Patient Instructions: Abdominal Pain (Nonspecific) Additional Instructions: You have been evaluated in the Emergency Department today for abdominal pain. Your evaluation was not suggestive of any emergent condition requiring medical intervention at this time. However, some abdominal problems make take more time to appear. Therefore, it is important for you to watch for any new symptoms or worsening of your current condition. Please follow up with your primary care physician as needed. If you do not have a primary doctor, you can call your insurance company to find one. If you do not have insurance, you can go to the finance/registration department for more assistance. Return to the Emergency Department if you experience worsening pain, persistent fevers greater than 100.4, recurrent vomiting, blood in vomit, blood in stool, dark tarry stool, chest pain, difficulty breathing, or any other concerning symptoms. Scripts Ondansetron Hcl (ZOFRAN) 4 Mg Tablet 4 MG PO PRN TID PRN for NAUSEA, #9 nausea/vomiting Prov: PRINCESS IZAGUIRRE DO 03/23/20 Justicifation of Admission Dx: Justifications for Admission: Justification of Admission Dx: N/A PRINCESS IZAGUIRRE DO Mar 23, 2020 10:10
[2020-03-23 10:21] LABS: BASO # 0.1 x10^3/uL (0.0-0.2); BASO % 1 % (0-3); EOS # 0.1 x10^3/uL (0.0-0.7); EOS % 2 % (0-3); HEMATOCRIT 39.7 % (36.0-47.0); HEMOGLOBIN 13.8 g/dL (12.0-15.5); LYMPH # 1.4 x10^3/uL (1.0-4.8); LYMPH % 28 % (24-48); MEAN CORPUSCULAR HEMOGLOBIN 30 pg (25-35); MEAN CORPUSCULAR HGB CONC 35 g/dL (31-37); MEAN CORPUSCULAR VOLUME 88 fL (79-100); MONO # 0.3 x10^3/uL (0.0-1.1); MONO % 7 % (0-9); NEUT # 3.1 x10^3/uL (1.8-7.7); NEUT % 63 % (31-73); PLATELET COUNT 228 x10^3/uL (140-400); RED BLOOD COUNT 4.53 x10^6/uL (3.50-5.40); RED CELL DISTRIBUTION WIDTH 13.5 % (11.5-14.5); WHITE BLOOD COUNT 4.9 x10^3/uL (4.0-11.0)
[2020-03-23 10:26] LABS: CREATININE 0.7 mg/dL (0.6-1.0); GFR 122.4; POTASSIUM 3.8 mmol/L (3.5-5.1)
[2020-03-23 10:32] LABS: ALBUMIN 3.7 g/dL (3.4-5.0); TOTAL BILIRUBIN 0.4 mg/dL (0.2-1.0); TOTAL PROTEIN 7.4 g/dL (6.4-8.2)
[2020-03-23] MEDS ORDERED: ONDANSETRON PF 4 MG/2 ML VIAL. IM ONE (11:15)
--- NOTE | 2020-03-23 11:26 | RAD ---
EXAM: Abdomen sonogram; obstetrics sonogram. HISTORY: Right flank pain. TECHNIQUE: Sonographic imaging of the abdomen and a gravid uterus was performed. COMPARISON: 10/06/2019. FINDINGS: The liver is normal in size. No focal hepatic lesion is seen. The gallbladder is unremarkable. The common bile duct is normal in caliber. The right kidney is unremarkable. The pancreas is unremarkable. The inferior vena cava is patent. The appendix is not seen. There is a single intrauterine gestational sac and fetus with yolk sac. The crown-rump length is 4.57 cm, corresponding with a gestational age of 11 weeks and 3 days. The heart rate is normal at 163 bpm. The cervix is closed and long. The uterus is normal in size. The gestational sac is normal in configuration and location. The ovaries are unremarkable. No subchorionic hematoma is seen. IMPRESSION: 1. Single intrauterine fetus with normal heart rate and gestational age of 11 weeks and 3 days. 2. Nonvisualization of the appendix. The abdominal sonogram is otherwise unremarkable. Electronically signed by: Marilee Portillo MD (03/23/2020 11:23 AM) [id number]
[2020-03-23] MEDS ORDERED: ONDA4TAB7 PO (11:50)
[2020-03-23 12:00] VITALS: BP 116/68
--- NOTE | 2020-03-26 03:31 | EKG ---
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
== END 2020-03-23 12:26 | disposition home or self-care (01) ==
LOC: ER 09:07
DX: O26.891 Other specified pregnancy related conditions, first trimester (principal); R10.9 Unspecified abdominal pain; R11.2 Nausea with vomiting, unspecified; O99.511 Diseases of the respiratory system complicating pregnancy, first trimester; J45.909 Unspecified asthma, uncomplicated; O99.331 Smoking (tobacco) complicating pregnancy, first trimester; Z3A.11 11 weeks gestation of pregnancy
CPT/HCPCS: 36415; 76705; 76801; 80053; 81001; 81025; 83690; 84702; 85025; 93005; 96361; 96372; 96374; 96376; 99285; J2270; J2405; J7030

== ENCOUNTER 2020-03-29 10:46 | Emergency (ER) | payer MEDICAID ==
[~2020-03-29] VITALS: Ht 162.6 cm; Wt 62.0 kg
[~2020-03-29 10:46] MED LIST changes: +ONDA4TAB7 PO
--- NOTE | 2020-03-29 11:51 | PHYS DOC ---
Past Medical History Past Medical History: Asthma Additional Past Medical Histor: miscarriage Past Surgical History: No Surgical History Smoking Status: Current Every Day Smoker Alcohol Use: None Drug Use: None General Adult EDM: Chief Complaint: VAGINAL BLEEDING HPI: HPI: Patient is a 24 year old AA female who presents to the emergency department today for vaginal spotting and lower abdominal cramping that started this morning. Patient was seen in this emergency department on March 23, 2020 for abdominal pain and , she states her work-up was negative for any acute findings at that time. She was told at that time that she was 11 weeks . Patient reports that her last menstrual cycle was on January 12, 2020. She is 6, para 2, with 2 previous miscarriages and a blighted ovum. Patient reports that she is not currently bleeding, she only had blood on the toilet paper after urinating. She denies any irregular vaginal discharge, or vaginal odor prior to the onset of the spotting that occurred this morning. She denies any dysuria, hematuria, increased urinary frequency, nausea, vomiting, diarrhea, low back pain, fever, cough, or shortness of breath. Patient is rating lower abdominal pain 7 out of 10, there is no radiation of pain, no alleviating or aggravating factors, she has not taken any treatment at home. Patient states that she will be seeing Dr. Rivers, her first appointment is not until next week. Review of Systems: Review of Systems: Constitutional: Denies fever or chills. [] Eyes: Denies change in visual acuity. [] HENT: Denies nasal congestion or sore throat. [] Respiratory: Denies cough or shortness of breath. [] Cardiovascular: Denies chest pain or edema. [] GI: See history of present illness [] : Denies dysuria, see HPI [] Musculoskeletal: Denies back pain or joint pain. [] Integument: Denies rash. [] Neurologic: Denies headache, focal weakness or sensory changes. [] Psychiatric: Denies depression or anxiety. [] Heart Score: Risk Factors: Risk Factors: DM, Current or recent (<one month) smoker, HTN, HLP, family history of CAD, obesity. Risk Scores: Score 0 - 3: 2.5% MACE over next 6 weeks - Discharge Home Score 4 - 6: 20.3% MACE over next 6 weeks - Admit for Clinical Observation Score 7 - 10: 72.7% MACE over next 6 weeks - Early Invasive Strategies Allergies: Allergies: Allergies Coded Allergies Type Severity Reaction Last Updated Verified No Known Drug Allergies 12/28/18 No Physical Exam: PE: Constitutional: Well developed, well nourished, no acute distress, non-toxic appearance. [] HENT: Normocephalic, atraumatic, bilateral external ears normal, nose normal. [] Eyes: PERRLA, EOMI, conjunctiva normal, no discharge. [] Neck: Normal range of motion, no stridor. [] Cardiovascular:Heart rate regular rhythm Lungs & Thorax: Respirations even and unlabored, no retractions, no respiratory distress Abdomen: soft, no guarding, no rebound tenderness, upper quadrants are nontender to palpation, discomfort with palpation of bilateral lower quadrants and supra pubic areas Back: No CVA tenderness Skin: Warm, dry, no erythema, no rash. [] Extremities: No cyanosis, ROM intact, no edema. [] Neurologic: Alert and oriented X 3, no focal deficits noted. [] Psychologic: Affect normal, judgement normal, mood normal. [] Current Patient Data: Vital Signs: Vital Signs Date Time Temp Pulse Resp B/P (MAP) Pulse Ox O2 Delivery O2 Flow Rate FiO2 03/29/20 11:16 98.6 87 16 123/81 (95) 100 Room Air 98.6 EKG: EKG: [] Radiology/Procedures: Radiology/Procedures: PROCEDURE: OB < 14 WKS OB < 14 WKS History: Reason: vag bleed during / Spl. Instructions: / History: Comparison: March 23, 2020. Technique: Grayscale and color Doppler imaging of the pelvis was performed using transabdominal technique. Findings: The uterus measures 11.8 x 8.7 x 8.0 cm. Single intrauterine gestational sac with well-circumscribed oblong appearance. Yolk sac not identified. pole identified with crown-rump length 5.46 cm. Estimated gestational age by ultrasound 12 weeks 1 day. heart rate 155 bpm. Right ovary measures 2.6 x 2.1 x 1.8 cm. Left ovary measures 3.5 x 2.3 x 1.8 cm. Dominant left ovarian follicle measures 0.7 cm. Normal Doppler flow to the ovaries bilaterally. No adnexal masses are seen. No free fluid. IMPRESSION: 1. Single intrauterine with gestational age 12 weeks 1 day and heart rate 155 bpm.[] Course & Med Decision Making: Course & Med Decision Making Pertinent Labs and Imaging studies reviewed. (See chart for details) 24-year-old female presents to the emergency department with complaints of spotting and lower abdominal pain and . Work-up included type and Rh, beta hCG, UA, and CBC. Patient was O- so patient was given 1 dose of RhoGam IM as vaginal bleeding was reported. Ultrasound revealed a intrauterine gestation measuring 12 weeks, 1 day with a heart rate of 155. Patient's urinalysis is concerning for urinary tract infection with 6-10 red blood cells, 5-10 white blood cells, and moderate bacteria; prescription written for Keflex. PT encouraged to increase clear fluids and avoid bladder irritants. 1505- Pt went to the bathroom, reports miscarriage with fetus in toilet at this time per Mariela FELICIANO. Products of conception collected by nurse and sent to lab. Pt does not want repeat US reports her pelvic cramps have gone away after passing the products. 1510- Spoke with Dr. Abel and advised of patient in the ER. Will send products of conception to lab for evaluation and have patient call the office to notify Dr. Rivers. Yecenia Disclaimer: Yecenia Disclaimer: This electronic medical record was generated, in whole or in part, using a voice recognition dictation system. Departure Departure Impression: Primary Impression: Urinary tract infection Qualified Codes: N39.0 - Urinary tract infection, site not specified; R31.9 - Hematuria, unspecified Additional Impression: Miscarriage Disposition: 01 HOME, SELF-CARE Condition: STABLE Referrals: NO PCP (PCP) Patient Instructions: Miscarriage, Mwjz-al-Vevo, Urinary Tract Infection, Ea sy-to-Read Additional Instructions: Fill prescription(s) and use as directed. Avoid bladder irritants such as caffeine, carbonation, and spicy foods. Increase clear fluids. Follow-up appointment with Dr. Rivers, call today to tell him of the miscarriage and inform him that you were given Rhogam during today's visit. Return to the ER if symptoms worsen. Scripts Cephalexin (KEFLEX) 500 Mg Capsule 500 MG PO BID for 7 Days, #14 CAP 0 Refills Prov: BOBBY MILLAN APRN 03/29/20 Justicifation of Admission Dx: Justifications for Admission: Justification of Admission Dx: N/A BOBBY MILLAN ASSOCIATE [employer]CH[employer]ISE [employer]ANNER Mar 29, 2020 11:51
[2020-03-29 12:13] LABS: BILIRUBIN,URINE NEGATIVE (NEG); CLARITY,URINE CLEAR; NITRITE,URINE NEGATIVE (NEG); PH,URINE 6.5 (<5.0-8.0); PROTEIN,URINE NEGATIVE (NEG-TRACE)
[2020-03-29 12:15] LABS: COLOR,URINE YELLOW
[2020-03-29 12:17] LABS: SQUAMOUS EPITHELIAL CELL,UR MANY /LPF
[2020-03-29 12:18] LABS: BACTERIA,URINE MODERATE /HPF (0-FEW)
[2020-03-29 12:52] LABS: BASO # 0.1 x10^3/uL (0.0-0.2); BASO % 3 % (0-3); EOS # 0.1 x10^3/uL (0.0-0.7); EOS % 1 % (0-3); HEMATOCRIT 38.3 % (36.0-47.0); HEMOGLOBIN 12.9 g/dL (12.0-15.5); LYMPH # 1.6 x10^3/uL (1.0-4.8); LYMPH % 30 % (24-48); MEAN CORPUSCULAR HEMOGLOBIN 30 pg (25-35); MEAN CORPUSCULAR HGB CONC 34 g/dL (31-37); MEAN CORPUSCULAR VOLUME 88 fL (79-100); MONO # 0.4 x10^3/uL (0.0-1.1); MONO % 8 % (0-9); NEUT # 3.1 x10^3/uL (1.8-7.7); NEUT % 59 % (31-73); PLATELET COUNT 232 x10^3/uL (140-400); RED BLOOD COUNT 4.35 x10^6/uL (3.50-5.40); RED CELL DISTRIBUTION WIDTH 13.4 % (11.5-14.5); WHITE BLOOD COUNT 5.3 x10^3/uL (4.0-11.0)
--- NOTE | 2020-03-29 13:27 | RAD ---
OB < 14 WKS History: Reason: vag bleed during / Spl. Instructions: / History: Comparison: March 23, 2020. Technique: Grayscale and color Doppler imaging of the pelvis was performed using transabdominal technique. Findings: The uterus measures 11.8 x 8.7 x 8.0 cm. Single intrauterine gestational sac with well-circumscribed oblong appearance. Yolk sac not identified. pole identified with crown-rump length 5.46 cm. Estimated gestational age by ultrasound 12 weeks 1 day. heart rate 155 bpm. Right ovary measures 2.6 x 2.1 x 1.8 cm. Left ovary measures 3.5 x 2.3 x 1.8 cm. Dominant left ovarian follicle measures 0.7 cm. Normal Doppler flow to the ovaries bilaterally. No adnexal masses are seen. No free fluid. IMPRESSION: 1. Single intrauterine with gestational age 12 weeks 1 day and heart rate 155 bpm. Electronically signed by: Ke Pope DO (03/29/2020 1:25 PM) [facility]
[2020-03-29] MEDS ORDERED: ACETAMINOPHEN 500 MG TABLET PO ONE (13:30)
[2020-03-29] MEDS ORDERED: CEPH-264 PO (13:38)
[2020-03-29] MEDS ORDERED: ONDANSETRON ODT 4 MG TAB.RAPDIS. PO ONE (14:30)
[2020-03-29 15:28] VITALS: BP 116/74
== END 2020-03-29 15:48 | disposition home or self-care (01) ==
LOC: ER 10:46
DX: O03.9 Complete or unspecified spontaneous abortion without complication (principal); O23.41 Unspecified infection of urinary tract in pregnancy, first trimester; R31.9 Hematuria, unspecified; O99.511 Diseases of the respiratory system complicating pregnancy, first trimester; J45.909 Unspecified asthma, uncomplicated; O99.331 Smoking (tobacco) complicating pregnancy, first trimester; Z3A.12 12 weeks gestation of pregnancy
CPT/HCPCS: 36415; 36430; 76801; 81001; 84702; 85025; 86850; 86900; 86901; 87086; 99285; J2791

== ENCOUNTER 2021-01-14 08:53 | Emergency (ER) | payer MEDICAID, OTHER ==
[~2021-01-14] VITALS: Ht 162.6 cm; Wt 62.9 kg
[2021-01-14 09:32] LABS: BILIRUBIN,URINE SMALL (NEG); CLARITY,URINE CLEAR; NITRITE,URINE NEGATIVE (NEG); PH,URINE 6.5 (<5.0-8.0); PROTEIN,URINE 30 mg/dL (NEG-TRACE)
[2021-01-14 09:34] LABS: COLOR,URINE YELLOW
[2021-01-14 09:35] LABS: U PREG PATIENT NEGATIVE (NEG)
[2021-01-14 09:37] LABS: RBC,URINE TNTC /HPF (0-2)
[2021-01-14 09:38] LABS: BACTERIA,URINE FEW /HPF (0-FEW)
[2021-01-14 09:53] LABS: BASO # 0.1 x10^3/uL (0.0-0.2); BASO % 3 % (0-3); EOS # 0.1 x10^3/uL (0.0-0.7); EOS % 3 % (0-3); HEMATOCRIT 42.9 % (36.0-47.0); HEMOGLOBIN 14.3 g/dL (12.0-15.5); LYMPH # 1.6 x10^3/uL (1.0-4.8); LYMPH % 38 % (24-48); MEAN CORPUSCULAR HEMOGLOBIN 30 pg (25-35); MEAN CORPUSCULAR HGB CONC 33 g/dL (31-37); MEAN CORPUSCULAR VOLUME 90 fL (79-100); MONO # 0.3 x10^3/uL (0.0-1.1); MONO % 7 % (0-9); NEUT # 2.1 x10^3/uL (1.8-7.7); NEUT % 50 % (31-73); PLATELET COUNT 233 x10^3/uL (140-400); RED BLOOD COUNT 4.74 x10^6/uL (3.50-5.40); RED CELL DISTRIBUTION WIDTH 13.1 % (11.5-14.5); WHITE BLOOD COUNT 4.3 x10^3/uL (4.0-11.0)
[2021-01-14 10:04] LABS: CALCIUM 8.7 mg/dL (8.5-10.1); CREATININE 0.8 mg/dL (0.6-1.0); GFR 104.1
[2021-01-14 10:10] LABS: ALBUMIN 4.2 g/dL (3.4-5.0); ALBUMIN/GLOBULIN RATIO 1.3 (1.0-1.7); TOTAL BILIRUBIN 0.4 mg/dL (0.2-1.0); TOTAL PROTEIN 7.5 g/dL (6.4-8.2)
[2021-01-14] MEDS ORDERED: MEDR10TA PO (11:27)
--- NOTE | 2021-01-14 11:27 | PHYS DOC ---
Past Medical History Past Medical History: Asthma, Other Additional Past Medical Histor: miscarriage Past Surgical History: No Surgical History Smoking Status: Current Every Day Smoker Additional Information: 0.25 PPD Alcohol Use: Occasionally Drug Use: None General Adult EDM: Chief Complaint: VAGINAL BLEEDING HPI: HPI: Patient is a 25 year old female who presented to ER for evaluation of vaginal bleeding off and on for a month. Patient denies any abdominal pain. Patient says she started her menstruation on December 07 and it has been bleeding off and on since. Patient feels weak and dizzy so she came in here for evaluation. Patient denies any chest pain, no abdominal pain, no nausea vomiting. Review of Systems: Review of Systems: Constitutional: Denies fever or chills. [] Eyes: Denies change in visual acuity. [] HENT: Denies nasal congestion or sore throat. [] Respiratory: Denies cough or shortness of breath. [] Cardiovascular: Denies chest pain or edema. [] GI: Denies abdominal pain, nausea, vomiting, bloody stools or diarrhea. [] : Denies dysuria. Positive for vaginal bleeding Musculoskeletal: Denies back pain or joint pain. [] Integument: Denies rash. [] Neurologic: Denies headache, focal weakness or sensory changes. [] Endocrine: Denies polyuria or polydipsia. [] Lymphatic: Denies swollen glands. [] Psychiatric: Denies depression or anxiety. [] Heart Score: C/O Chest Pain: N/A Risk Factors: Risk Factors: DM, Current or recent (<one month) smoker, HTN, HLP, family history of CAD, obesity. Risk Scores: Score 0 - 3: 2.5% MACE over next 6 weeks - Discharge Home Score 4 - 6: 20.3% MACE over next 6 weeks - Admit for Clinical Observation Score 7 - 10: 72.7% MACE over next 6 weeks - Early Invasive Strategies Allergies: Allergies: Allergies Coded Allergies Type Severity Reaction Last Updated Verified No Known Drug Allergies 12/28/18 No Physical Exam: PE: Constitutional: Well developed, well nourished, no acute distress, non-toxic appearance. [] HENT: Normocephalic, atraumatic, bilateral external ears normal, oropharynx moist, no oral exudates, nose normal. [] Eyes: PERRLA, EOMI, conjunctiva normal, no discharge. [] Neck: Normal range of motion, no tenderness, supple, no stridor. [] Cardiovascular:Heart rate regular rhythm, no murmur [] Lungs & Thorax: Bilateral breath sounds clear to auscultation [] Abdomen: Bowel sounds normal, soft, no tenderness, no masses, no pulsatile masses. Pelvic exam: small amount of blood in external vaginal canal, no adnexa tenderness, no rash. Skin: Warm, dry, no erythema, no rash. [] Back: No tenderness, no CVA tenderness. [] Extremities: No tenderness, no cyanosis, no clubbing, ROM intact, no edema. [] Neurologic: Alert and oriented X 3, normal motor function, normal sensory function, no focal deficits noted. [] Psychologic: Affect normal, judgement normal, mood normal. [] Current Patient Data: Labs: Laboratory Tests Test 01/14/21 09:07 01/14/21 09:44 Urine Collection Type Void Urine Color Yellow Urine Clarity Clear Urine pH 6.5 (<5.0-8.0) Urine Specific Yoder 1.025 (1.000-1.030) Urine Protein 30 mg/dL (NEG-TRACE) Urine Glucose (UA) Negative mg/dL (NEG) Urine Ketones (Stick) Trace mg/dL (NEG) Urine Blood Large (NEG) Urine Nitrite Negative (NEG) Urine Bilirubin Small (NEG) Urine Urobilinogen Dipstick 1.0 mg/dL (0.2 mg/dL) Urine Leukocyte Esterase Small (NEG) Urine RBC Tntc /HPF (0-2) Urine WBC 5-10 /HPF (0-4) Urine Squamous Epithelial Cells Mod /LPF Urine Bacteria Few /HPF (0-FEW) Urine Mucus Marked /LPF Urine Test Negative (NEG) White Blood Count 4.3 x10^3/uL (4.0-11.0) Red Blood Count 4.74 x10^6/uL (3.50-5.40) Hemoglobin 14.3 g/dL (12.0-15.5) Hematocrit 42.9 % (36.0-47.0) Mean Corpuscular Volume 90 fL (79-100) Mean Corpuscular Hemoglobin 30 pg (25-35) Mean Corpuscular Hemoglobin Concent 33 g/dL (31-37) Red Cell Distribution Width 13.1 % (11.5-14.5) Platelet Count 233 x10^3/uL (140-400) Neutrophils (%) (Auto) 50 % (31-73) Lymphocytes (%) (Auto) 38 % (24-48) Monocytes (%) (Auto) 7 % (0-9) Eosinophils (%) (Auto) 3 % (0-3) Basophils (%) (Auto) 3 % (0-3) Neutrophils # (Auto) 2.1 x10^3/uL (1.8-7.7) Lymphocytes # (Auto) 1.6 x10^3/uL (1.0-4.8) Monocytes # (Auto) 0.3 x10^3/uL (0.0-1.1) Eosinophils # (Auto) 0.1 x10^3/uL (0.0-0.7) Basophils # (Auto) 0.1 x10^3/uL (0.0-0.2) Sodium Level 139 mmol/L (136-145) Potassium Level 4.0 mmol/L (3.5-5.1) Chloride Level 104 mmol/L (98-107) Carbon Dioxide Level 26 mmol/L (21-32) Anion Gap 9 (6-14) Blood Urea Nitrogen 9 mg/dL (7-20) Creatinine 0.8 mg/dL (0.6-1.0) Estimated GFR (Cockcroft-Gault) 104.1 BUN/Creatinine Ratio 11 (6-20) Glucose Level 95 mg/dL (70-99) Calcium Level 8.7 mg/dL (8.5-10.1) Magnesium Level 2.0 mg/dL (1.8-2.4) Total Bilirubin 0.4 mg/dL (0.2-1.0) Aspartate Amino Transferase (AST) 14 U/L (15-37) L Alanine Aminotransferase (ALT) 19 U/L (14-59) Alkaline Phosphatase 47 U/L (46-116) Total Protein 7.5 g/dL (6.4-8.2) Albumin 4.2 g/dL (3.4-5.0) Albumin/Globulin Ratio 1.3 (1.0-1.7) Laboratory Tests 01/14/21 09:44 Laboratory Tests 01/14/21 09:44 Vital Signs: Vital Signs Date Time Temp Pulse Resp B/P (MAP) Pulse Ox O2 Delivery O2 Flow Rate FiO2 01/14/21 09:21 98.6 91 17 123/75 (91) 97 Room Air 98.6 EKG: EKG: [] Radiology/Procedures: Radiology/Procedures: [] Course & Med Decision Making: Course & Med Decision Making Pertinent Labs and Imaging studies reviewed. (See chart for details) Patient is a 25-year-old female who was evaluated in ER due to vaginal bleeding off and on for 1 month. Patient vital signs was normal, her hemoglobin level was normal. Patient ia most likely has dysfunctional uterine bleeding. Patient was discharged home with prescription for Provera. Patient will need to follow-up with gynecology for reevaluation. Patient was amenable to plan of care for Yecenia Disclaimer: Dragon Disclaimer: This electronic medical record was generated, in whole or in part, using a voice recognition dictation system. Departure Departure Impression: Primary Impression: Dysfunctional uterine bleeding Disposition: HOME / SELF CARE / HOMELESS Condition: STABLE Referrals: FER TRUONG MD (PCP) JACKIE FRIAS Jr, MD Please call this [employer] DOCTOR FOR FOLLOW UP THIS WEEK Patient Instructions: Uterine Bleeding, Dysfunctional Additional Instructions: Thank you for visiting our Emergency Department. We appreciate you trusting us with your care. If any additional problems come up don't hesitate to return to visit us. Please follow up with your primary care provider so they can plan additional care if needed and know about the problem that you had. If symptoms worsen come back to the Emergency Department. Any concerning symptoms that start such as chest pain, shortness of air, weakness or numbness on one side of the body, running high fevers or any other concerning symptoms return to the ER. Scripts Medroxyprogesterone Acetate (PROVERA) 10 Mg Tablet 1 TAB PO DAILY for 10 Days, #10 TAB Prov: LUIS ANTONIO BOX DO 01/14/21 LUIS ANTONIO BOX DO January 14, 2021 11:27
[2021-01-14 11:48] VITALS: BP 116/69
== END 2021-01-14 12:00 | disposition home or self-care (01) ==
LOC: ER 08:53
DX: N93.8 Other specified abnormal uterine and vaginal bleeding (principal); J45.909 Unspecified asthma, uncomplicated; F17.200 Nicotine dependence, unspecified, uncomplicated
CPT/HCPCS: 36415; 80053; 81001; 81025; 83735; 85025; 87086; 99285-25

== ENCOUNTER → 2021-02-06 | Outpatient (CLI) | payer OTHER ==
[2021-01-14 11:48] VITALS: BP 116/69
[~2021-02-06] MED LIST changes: +MEDR10TA PO
--- NOTE | 2021-02-06 08:52 | RAD ---
INDICATION: Reason: EXCESSIVE OR FREQUENT MENSTRUATION; ABNORMAL UTERINE BLEEDING / Spl. Instructions : / History: COMPARISON: None. TECHNIQUE: Grayscale and color ultrasound images uterus and adnexa. Transabdominal and transvaginal images obtained. Transvaginal images were needed to better visualize structures that were limited on transabdominal imaging. FINDINGS: Uterus: 70 x 62 x 46 mm. 11 mm endometrial stripe Right Ovary: 19 x 15 x 14 mm. Left Ovary: 49 x 27 x 21 mm. Vascular flow identified to bilateral ovaries. Small amount of fluid is seen within the endometrial stripe. IMPRESSION: * There is a small amount of fluid and debris within the endometrial stripe which is not thickened for the patient's age. Uterus is morphologically unremarkable. Electronically signed by: Joce Patino MD (02/06/2021 8:49 AM) [id number]
== END ==
LOC: US 07:58
PROVIDERS: ATTEND Obstetrics & Gynecology
DX: N92.0 Excessive and frequent menstruation with regular cycle (principal); N93.9 Abnormal uterine and vaginal bleeding, unspecified
CPT/HCPCS: 76856

== ENCOUNTER → 2021-07-14 | Outpatient (CLI) | payer OTHER ==
--- NOTE | 2021-07-14 15:00 | RAD ---
EXAM: Left breast sonogram. HISTORY: 26-year-old female presents with a left breast lump. TECHNIQUE: Sonographic imaging of the left breast targeted to the site of reported concern of the lef t axilla was performed. COMPARISON: None. FINDINGS: There is an island of dense breast parenchyma at the 2:30 position 4 cm from the nipple, co rresponding with location of reported palpable concern. There is no suspicious lesion in this locatio n. There are benign-appearing axillary lymph nodes. IMPRESSION: 1. Small amount of dense breast parenchyma at the 2:30 position 4 cm from nipple at the site of palpa ble concern. 2. No suspicious sonographic finding. 3. BI-RADS Category 2: Benign finding(s). Continued clinical follow-up of palpable abnormality is rec ommended. Negative imaging should not preclude the decision to biopsy a palpable abnormality if there is continuing concern. Electronically signed by: Marilee Portillo MD (07/14/2021 2:58 PM) [id number]
== END ==
LOC: US 14:41
PROVIDERS: ATTEND Obstetrics & Gynecology
DX: R92.2 Inconclusive mammogram (principal); N63.0 Unspecified lump in unspecified breast
CPT/HCPCS: 76641